=== PATIENT | female | born 1945 | race Caucasian/White ===

== ENCOUNTER → 2017-04-24 | Outpatient (CLI) | payer MEDICARE ==
[2017-04-24 13:47] VITALS: BP 141/72; PULSE 70; TEMP 97.6; BMI 24.8
[2017-04-24 14:57] LABS: HCT 39.2 % (34.0-46.0); HGB 12.4 gm/dL (11.4-16.0); MCH 32.6 pg (25.0-35.0); MCHC 31.6 g/dL (31.0-37.0); MCV 103.2 fL (80.0-100.0); Macrocytosis Slight; Platelet Count 299 k/uL (150-450); RDW 12.6 % (11.5-15.5); WBC 10.5 k/uL (3.8-10.6)
[2017-04-24 15:08] LABS: ALT 43 U/L (9-52); AST 36 U/L (14-36); Albumin 3.7 g/dL (3.5-5.0); Alkaline Phosphatase 117 U/L (38-126); Anion Gap 9 mmol/L; Blood Urea Nitrogen 17 mg/dL (7-17); Carbon Dioxide 24 mmol/L (22-30); Chloride 106 mmol/L (98-107); Cholesterol 139 mg/dL (<200); Glucose 83 mg/dL (74-99); HDL Cholesterol 87 mg/dL (40-60); LDL Cholesterol,Calculated 37 mg/dL (0-99); Magnesium 1.7 mg/dL (1.6-2.3); Partial Thromboplastin Time 25.8 sec (22.0-30.0); Phosphorus 3.7 mg/dL (2.5-4.5); Potassium 4.4 mmol/L (3.5-5.1); Prothrombin Time 10.2 sec (9.0-12.0); Sodium 139 mmol/L (137-145); Total Bilirubin 0.4 mg/dL (0.2-1.3); Total Protein 6.2 g/dL (6.3-8.2); Triglycerides 77 mg/dL (<150)
[2017-04-24 18:46] LABS: Vitamin D 25 Hydroxy 35.1 ng/mL (30.0-100.0)
[2017-04-24 19:14] LABS: Folate, Serum >24.0 ng/mL; Iron Saturation 8.67 (12.00-45.00); Vitamin B12 >4000.0 pg/mL (211-911)
[2017-04-24 20:04] LABS: Hemoglobin A1C 5.3 % (4.0-6.0)
[2017-04-24 20:20] LABS: Parathyroid Hormone Intact 56.2 pg/mL (14.0-72.0)
[2017-04-25 12:19] LABS: Zinc, Serum 66 ug/dL (60-130)
[2017-04-26 04:00] LABS: Vitamin B1 65 ug/L (38-122)
[2017-04-26 06:16] LABS: Vitamin A 40 ug/dL (38-106)
[2017-04-26 19:00] LABS: Selenium 101 mcg/L (63-160)
--- NOTE | 2017-06-22 20:52 | P.PN ---
Subjective Progress Note Date: 04/24/17 DATE OF SERVICE: 04/24/2017 CHIEF COMPLAINT: Follow-up Jyoti-en-Y gastric bypass. HISTORY OF PRESENT ILLNESS: Debra Blanco is a 72-year-old female who is status post Jyoti-en-Y gastric bypass in January 2014. She has history of prior Rosio fundoplasty with failure and she had weighed 210 pounds. Today she comes in weighing 145 pounds. She has lost 66 pounds. [place] body weight is 144 pounds. Percent excess weight loss is 99%. Body mass index is reduced from 36.1 down to 24.8. Her reflux and heartburn is completely resolved. No reports of dysphagia. No reports of abdominal pain. Now she presents for further evaluation and management. PAST MEDICAL HISTORY: 1. Morbid obesity. 2. Prior body mass index of 36.2. 3. Dyslipidemia. 4. Gastroesophageal reflux disease. 5. Osteoarthritis. 6. Essential tremors. 7. Depression. 8. Gastroesophageal disease, resolved. PAST SURGICAL HISTORY: 1. Upper endoscopy. 2. Colonoscopy. 3. Cholecystectomy. 4. Fundoplasty. 5. Varicose vein stripping. 6. EGD. 7. Jyoti-en-Y gastric bypass. MEDICATIONS: 1. Vitamin B. 2. Topiramate. 3. Primidone. 4. Paxil. 5. Multivitamin. 6. Vitamin D. 7. Calcium citrate. ALLERGIES: DENIES. SOCIAL HISTORY: She is . No active tobacco or alcohol use. FAMILY HISTORY: Pertinent for morbid obesity. REVIEW OF SYSTEMS: CONSTITUTIONAL: [place] body of 144 pounds. Initial weight 210 pounds. Current weight 144 pounds. Body mass index reduced from 36.1 down to 24.8. She has lost 2 pounds in 1 year. She has 99% excess loss. GASTROINTESTINAL: Complete resolution of gastroesophageal reflux disease. MUSCULOSKELETAL: Improvement of the back including joints. HEENT: No troubles with hearing or dysphagia. ENDOCRINE: No reports of diabetes or thyroid disorder. CARDIOVASCULAR: No reports of recent chest pain or dyspnea on exertion. RESPIRATORY: Denies any asthma or wheezing. NEURO: No reports of stroke or seizure disorders. PSYCH: History of depression without suicidal ideation. HEMATOLOGIC: No easy bruising or bleeding. PHYSICAL EXAMINATION: VITAL SIGNS: 5 foot 4, 144 pounds. Body mass index 24.8. Vital Signs Temp 97.6 F 04/24/17 13:12 Pulse 70 04/24/17 13:12 Resp BP 141/72 04/24/17 13:12 Pulse Ox ABDOMEN: Soft, nontender, nondistended. No palpable mass. GENERAL: Well-developed, pleasant female in no acute distress. HEENT: No sclerae icterus. Extraocular movements grossly intact. Moist buccal mucosa. NECK: Supple without lymphadenopathy. CHEST: Nonlabored respirations. Equal bilateral excursions. CARDIOVASCULAR: Regular rate. 2+ radial pulses. MUSCULOSKELETAL: No clubbing, cyanosis or edema. NEURO: No focal or lateralizing signs. Cranial nerves II-12 grossly intact PSYCH: Appropriate affect. Alert and oriented to person, place and time. SKIN: Well perfused. Skin turgor. ASSESSMENT: 1. Morbid obesity due to exogenous caloric intake, now resolved. 2. Body mass index reduced from 36.2 to 24.8.. 3. Gastroesophageal reflux disease, completely resolved. 4. Hypertension, resolved. 5. Status post Jyoti-en-Y gastric bypass. 6. Iron deficiency anemia. PLAN: 1. Recommend bariatric metabolic panel as she is one year out. 2. Follow in [facility] in 1 year. 3. Recommend iron supplement. LABS: Laboratory Last Values WBC 10.5 k/uL (3.8-10.6) 04/24/17 14:31 RBC 3.80 m/uL (3.80-5.40) 04/24/17 14:31 Hgb 12.4 gm/dL (11.4-16.0) 04/24/17 14:31 Hct 39.2 % (34.0-46.0) 04/24/17 14:31 MCV 103.2 fL (80.0-100.0) H 04/24/17 14:31 MCH 32.6 pg (25.0-35.0) 04/24/17 14:31 MCHC 31.6 g/dL (31.0-37.0) 04/24/17 14:31 RDW 12.6 % (11.5-15.5) 04/24/17 14:31 Plt Count 299 k/uL (150-450) 04/24/17 14:31 Macrocytosis Slight 04/24/17 14:31 PT 10.2 sec (9.0-12.0) 04/24/17 14:31 INR 1.0 (<1.2) 04/24/17 14:31 APTT 25.8 sec (22.0-30.0) 04/24/17 14:31 Sodium 139 mmol/L (137-145) 04/24/17 14:31 Potassium 4.4 mmol/L (3.5-5.1) 04/24/17 14:31 Chloride 106 mmol/L (98-107) 04/24/17 14:31 Carbon Dioxide 24 mmol/L (22-30) 04/24/17 14:31 Anion Gap 9 mmol/L 04/24/17 14:31 BUN 17 mg/dL (7-17) 04/24/17 14:31 Creatinine 0.90 mg/dL (0.52-1.04) 04/24/17 14:31 Est GFR (MDRD) Af Amer >60 (>60 ml/min/1.73 sqM) 04/24/17 14:31 Est GFR (MDRD) Non-Af >60 (>60 ml/min/1.73 sqM) 04/24/17 14:31 Glucose 83 mg/dL (74-99) 04/24/17 14:[address] Glu mg/dL 105 04/24/17 14:31 Hemoglobin A1c 5.3 % (4.0-6.0) 04/24/17 14:31 Calcium 9.0 mg/dL (8.4-10.2) 04/24/17 14:31 Phosphorus 3.7 mg/dL (2.5-4.5) 04/24/17 14:31 Magnesium 1.7 mg/dL (1.6-2.3) 04/24/17 14:31 Iron 26 ug/dL (50-170) L 04/24/17 14:31 TIBC 300 ug/dL (228-460) 04/24/17 14:31 Iron Saturation 8.67 (12.00-45.00) L 04/24/17 14:31 Ferritin 59.5 ng/mL (10.0-291.0) 04/24/17 14:31 Total Bilirubin 0.4 mg/dL (0.2-1.3) 04/24/17 14:31 AST 36 U/L (14-36) 04/24/17 14:31 ALT 43 U/L (9-52) 04/24/17 14:31 Alkaline Phosphatase 117 U/L (38-126) 04/24/17 14:31 Total Protein 6.2 g/dL (6.3-8.2) L 04/24/17 14:31 Albumin 3.7 g/dL (3.5-5.0) 04/24/17 14:31 Prealbumin 14.0 mg/dL (18.0-42.0) L 04/24/17 14:31 Triglycerides 77 mg/dL (<150) 04/24/17 14:31 Cholesterol 139 mg/dL (<200) 04/24/17 14:31 LDL Cholesterol, Calc 37 mg/dL (0-99) 04/24/17 14:31 HDL Cholesterol 87 mg/dL (40-60) H 04/24/17 14:31 Vitamin A 40 ug/dL (38-106) 04/24/17 14:31 Vitamin B1 65 ug/L (38-122) 04/24/17 14:31 Vitamin B12 >4000.0 pg/mL (211-911) H 04/24/17 14:31 Vitamin D 25-Hydroxy 35.1 ng/mL (30.0-100.0) 04/24/17 14:31 Folate >24.0 ng/mL 04/24/17 14:31 TSH 1.960 mIU/L (0.465-4.680) 04/24/17 14:31 PTH Intact 56.2 pg/mL (14.0-72.0) 04/24/17 14:31 Copper 1355 ug/L (810-1990) 04/24/17 14:31 Selenium 101 mcg/L (63-160) 04/24/17 14:31 Zinc 66 ug/dL (60-130) 04/24/17 14:31 Objective - Vital Signs Vital signs: Intake & Output 04/23/17 04/24/17 04/24/17 18:59 06:59 18:59 Weight 65.635 kg - Labs CBC & Chem 7: 04/24/17 14:31 04/24/17 14:31
== END | disposition home or self-care (01) ==
LOC: BARWHC3 12:38
PROVIDERS: ATTEND Surgery Plastic and Reconstructive Surgery
DX: Z48.815 Encounter for surgical aftercare following surgery on the digestive system (principal); D50.9 Iron deficiency anemia, unspecified; E78.5 Hyperlipidemia, unspecified; M19.90 Unspecified osteoarthritis, unspecified site; G25.0 Essential tremor; F32.9 Major depressive disorder, single episode, unspecified; E71.19 Other disorders of branched-chain amino-acid metabolism; E89.1 Postprocedural hypoinsulinemia; D50.8 Other iron deficiency anemias; E44.0 Moderate protein-calorie malnutrition; E55.9 Vitamin D deficiency, unspecified; K74.1 Hepatic sclerosis; N19 Unspecified kidney failure; K50.90 Crohn's disease, unspecified, without complications; Z98.84 Bariatric surgery status; Z90.49 Acquired absence of other specified parts of digestive tract; Z79.899 Other long term (current) drug therapy; Z98.890 Other specified postprocedural states
CPT/HCPCS: 84255; 84134; 84425; 80061; 80053; 82607; 82728; 82525; 82746; 83540; 83550; 83735; 84100; 84443; 84590; 84630; 85027; 85610; 85730; 82306; 83970; 83036; 36415; G0463; 99211

== ENCOUNTER → 2018-04-23 | Outpatient (CLI) | payer MEDICARE ==
[2018-04-23 14:11] VITALS: BP 130/74; PULSE 66; RESP 16; TEMP 98.1; BMI 26.8
--- NOTE | 2018-04-23 14:49 | P.PN ---
Subjective Progress Note Date: 04/23/18 DATE OF SERVICE: 04/23/2018 CHIEF COMPLAINT: Follow-up Jyoti-en-Y gastric bypass. HISTORY OF PRESENT ILLNESS: Debra Blanco is a 73-year-old female who is status post Jyoti-en-Y gastric bypass in January 2014. She is 4 years out. She is on the road. She has gained 12 pounds in 1 year. She was 145 pounds. Today she comes in 156 pounds. She has no gastroesophageal reflux disease. She was 210 pounds. She has lost 54 pounds. [place] body weight is 144 pounds. Percent excess weight loss is 82%. Body mass index is reduced from 36.1 down to 26.9. No reports of abdominal pain. PAST MEDICAL HISTORY: 1. Morbid obesity. 2. Prior body mass index of 36.2. 3. Dyslipidemia. 4. Gastroesophageal reflux disease. 5. Osteoarthritis. 6. Essential tremors. 7. Depression. 8. Gastroesophageal disease, resolved. PAST SURGICAL HISTORY: 1. Upper endoscopy. 2. Colonoscopy. 3. Cholecystectomy. 4. Fundoplasty. 5. Varicose vein stripping. 6. EGD. 7. Jyoti-en-Y gastric bypass. MEDICATIONS: 1. Vitamin B. 2. Topiramate. 3. Primidone. 4. Paxil. 5. Multivitamin. 6. Vitamin D. 7. Calcium citrate. ALLERGIES: DENIES. SOCIAL HISTORY: She is . No active tobacco or alcohol use. FAMILY HISTORY: Pertinent for morbid obesity. REVIEW OF SYSTEMS: CONSTITUTIONAL: [place] body of 144 pounds. Initial weight 210 pounds. Body mass index was 36.1. GASTROINTESTINAL: Complete resolution of gastroesophageal reflux disease. No dumping syndrome. MUSCULOSKELETAL: Improvement of the back including joints. HEENT: No troubles with hearing or dysphagia. ENDOCRINE: No reports of diabetes or thyroid disorder. CARDIOVASCULAR: No reports of recent chest pain or dyspnea on exertion. RESPIRATORY: Denies any asthma or wheezing. NEURO: No reports of stroke or seizure disorders. PSYCH: History of depression without suicidal ideation. HEMATOLOGIC: No easy bruising or bleeding. PHYSICAL EXAMINATION: VITAL SIGNS: 5 foot 4, 156 pounds. Body mass index 26.9. Vital Signs Temp 98.1 F 04/23/18 14:07 Pulse 66 04/23/18 14:07 Resp 16 04/23/18 14:07 BP 130/74 04/23/18 14:07 Pulse Ox ABDOMEN: Soft, nontender, nondistended. No palpable mass. GENERAL: Well-developed, pleasant female in no acute distress. HEENT: No sclerae icterus. Extraocular movements grossly intact. Moist buccal mucosa. NECK: Supple without lymphadenopathy. CHEST: Nonlabored respirations. Equal bilateral excursions. CARDIOVASCULAR: Regular rate. 2+ radial pulses. MUSCULOSKELETAL: No clubbing, cyanosis or edema. NEURO: No focal or lateralizing signs. Cranial nerves II-12 grossly intact PSYCH: Appropriate affect. Alert and oriented to person, place and time. SKIN: Well perfused. Skin turgor. ASSESSMENT: 1. Morbid obesity due to exogenous caloric intake, now resolved. 2. Body mass index reduced from 36.2 to 26.9 3. Gastroesophageal reflux disease, completely resolved. 4. Hypertension, resolved. 5. Status post Jyoti-en-Y gastric bypass. 6. Iron deficiency anemia. PLAN: 1. She is doing well. 2. She has no gastroesophageal reflux disease 3. Recommend bariatric labs. Laboratory Last Values WBC 6.6 k/uL (3.8-10.6) 04/23/18 15:12 RBC 3.98 m/uL (3.80-5.40) 04/23/18 15:12 Hgb 12.8 gm/dL (11.4-16.0) 04/23/18 15:12 Hct 40.1 % (34.0-46.0) 04/23/18 15:12 MCV 100.8 fL (80.0-100.0) H 04/23/18 15:12 MCH 32.2 pg (25.0-35.0) 04/23/18 15:12 MCHC 32.0 g/dL (31.0-37.0) 04/23/18 15:12 RDW 12.2 % (11.5-15.5) 04/23/18 15:12 Plt Count 297 k/uL (150-450) 04/23/18 15:12 PT 10.1 sec (9.0-12.0) 04/23/18 15:12 INR 1.0 (<1.2) 04/23/18 15:12 APTT 23.8 sec (22.0-30.0) 04/23/18 15:12 Sodium 141 mmol/L (135-145) 04/23/18 15:12 Potassium 4.1 mmol/L (3.5-5.5) 04/23/18 15:12 Chloride 109 mmol/L (96-109) 04/23/18 15:12 Carbon Dioxide 25.8 mmol/L (21.6-31.8) 04/23/18 15:12 Anion Gap 6.20 mmol/L (4.00-12.00) 04/23/18 15:12 BUN 20.0 mg/dL (9.0-27.0) 04/23/18 15:12 Creatinine 1.1 mg/dL (0.6-1.5) 04/23/18 15:12 Est GFR (CKD-EPI)AfAm 57.3 (60.0-200.0) L 04/23/18 15:12 Est GFR (CKD-EPI)NonAf 49.4 (60.0-200.0) L 04/23/18 15:12 BUN/Creatinine Ratio 18.18 Ratio (12.00-20.00) 04/23/18 15:12 Glucose 73 mg/dL (70-110) 04/23/18 15:[address] Glu mg/dL 108 04/23/18 15:12 Hemoglobin A1c 5.4 % (4.0-6.0) 04/23/18 15:12 Calcium 8.8 mg/dL (8.7-10.3) 04/23/18 15:12 Phosphorus 3.8 mg/dL (2.4-5.1) 04/23/18 15:12 Magnesium 1.8 mg/dL (1.5-2.4) 04/23/18 15:12 Iron 98 ug/dL (50-170) 04/23/18 15:12 TIBC 270 ug/dL (228-460) 04/23/18 15:12 Iron Saturation 36.30 (12.00-45.00) 04/23/18 15:12 Ferritin 55.2 ng/mL (10.0-291.0) 04/23/18 15:12 Total Bilirubin 0.2 mg/dL (0.3-1.2) L 04/23/18 15:12 AST 36 U/L (13-35) H 04/23/18 15:12 ALT 35 U/L (8-44) 04/23/18 15:12 Alkaline Phosphatase 107 U/L (41-126) 04/23/18 15:12 Total Protein 5.9 g/dL (6.2-8.2) L 04/23/18 15:12 Albumin 4.10 g/dL (3.80-4.90) 04/23/18 15:12 Globulin 1.8 g/dL (2.1-3.7) L 04/23/18 15:12 Albumin/Globulin Ratio 2.28 g/dL (1.20-2.10) H 04/23/18 15:12 Prealbumin 26.0 mg/dL (18.0-42.0) 04/23/18 15:12 Triglycerides 141.0 mg/dL (0.0-149.0) 04/23/18 15:12 Cholesterol 183 mg/dL (0-200) 04/23/18 15:12 LDL Cholesterol, Calc 59.8 mg/dL (0.0-131.0) 04/23/18 15:12 VLDL Cholesterol, Calc 28.20 mg/dL (5.00-40.00) 04/23/18 15:12 HDL Cholesterol 95.0 mg/dL (40.0-60.0) H 04/23/18 15:12 Cholesterol/HDL Ratio 1.93 04/23/18 15:12 Vitamin A 69 ug/dL (38-106) 04/23/18 15:12 Vitamin B1 64 ug/L (38-122) 04/23/18 15: Vitamin B12 1424.0 pg/mL (200.0-944.0) H 04/23/18 15:12 Vitamin D 25-Hydroxy 30.0 ng/mL (30.0-100.0) 04/23/18 15:12 Folate >24.0 ng/mL 04/23/18 15:12 TSH 2.930 uIU/mL (0.350-5.500) 04/23/18 15:12 PTH Intact 78.3 pg/mL (14.0-72.0) H 04/23/18 15:12 Copper 1117 ug/L (810-1990) 04/23/18 15:12 Selenium 95 mcg/L (63-160) 11/14/18 15:12 Zinc 60 ug/dL (60-130) 04/23/18 15:12 Objective - Vital Signs Vital signs: Vital Signs Temp 98.1 F 04/23/18 14:07 Pulse 66 04/23/18 14:07 Resp 16 04/23/18 14:07 BP 130/74 04/23/18 14:07 Pulse Ox Intake & Output 04/22/18 04/23/18 04/23/18 18:59 06:59 18:59 Weight 70.959 kg - Labs CBC & Chem 7: 04/23/18 15:12 04/23/18 15:12
[2018-04-23 16:14] LABS: HCT 40.1 % (34.0-46.0); HGB 12.8 gm/dL (11.4-16.0); MCH 32.2 pg (25.0-35.0); MCV 100.8 fL (80.0-100.0); Platelet Count 297 k/uL (150-450); RBC 3.98 m/uL (3.80-5.40); RDW 12.2 % (11.5-15.5); WBC 6.6 k/uL (3.8-10.6)
[2018-04-23 16:21] LABS: Partial Thromboplastin Time 23.8 sec (22.0-30.0); Prothrombin Time 10.1 sec (9.0-12.0)
[2018-04-24 03:19] LABS: Parathyroid Hormone Intact 78.3 pg/mL (14.0-72.0)
[2018-04-24 03:32] LABS: Hemoglobin A1C 5.4 % (4.0-6.0)
[2018-04-24 04:17] LABS: Albumin 4.1 g/dL (3.80-4.90); Albumin/Globulin Ratio 2.28 (1.20-2.10); Anion Gap 6.2 mmol/L (4.00-12.00); Calcium 8.8 mg/dL (8.7-10.3); Carbon Dioxide 25.8 mmol/L (21.6-31.8); Globulin 1.8 g/dL (2.1-3.7); LDL Cholesterol,Calculated 59.8 mg/dL (0.0-131.0); Potassium 4.1 mmol/L (3.5-5.5); Total Bilirubin 0.2 mg/dL (0.3-1.2); Total Protein 5.9 g/dL (6.2-8.2); VLDL Calculation 28.2 mg/dL (5.00-40.00)
[2018-04-24 04:18] LABS: Magnesium 1.8 mg/dL (1.5-2.4); Phosphorus 3.8 mg/dL (2.4-5.1)
[2018-04-24 04:26] LABS: Folate, Serum >24.0 ng/mL
[2018-04-24 13:05] LABS: Zinc, Serum 60 ug/dL (60-130)
[2018-04-25 10:01] LABS: Vitamin A 69 ug/dL (38-106)
[2018-04-28 05:58] LABS: Vitamin B1 64 ug/L (38-122)
[2018-04-29 16:07] LABS: Selenium 95 mcg/L (63-160)
== END | disposition home or self-care (01) ==
LOC: BARWHC3 13:23
PROVIDERS: ATTEND Surgery Plastic and Reconstructive Surgery
DX: Z48.815 Encounter for surgical aftercare following surgery on the digestive system (principal); D50.9 Iron deficiency anemia, unspecified; E78.5 Hyperlipidemia, unspecified; E21.1 Secondary hyperparathyroidism, not elsewhere classified; E89.1 Postprocedural hypoinsulinemia; K90.9 Intestinal malabsorption, unspecified; E55.9 Vitamin D deficiency, unspecified; K76.9 Liver disease, unspecified; N19 Unspecified kidney failure; K50.90 Crohn's disease, unspecified, without complications; Z98.84 Bariatric surgery status; Z90.49 Acquired absence of other specified parts of digestive tract; Z98.890 Other specified postprocedural states; Z79.899 Other long term (current) drug therapy
CPT/HCPCS: 84255; 84134; 84425; 80061; 80053; 82607; 82728; 82525; 82746; 83540; 83550; 83735; 84100; 84443; 84590; 84630; 85027; 85610; 85730; 82306; 83970; 83036; 36415; G0463; 99211

== ENCOUNTER → 2019-05-06 | Outpatient (CLI) | payer MEDICARE ==
[2019-05-06 13:48] VITALS: BP 142/84; PULSE 64; RESP 16; TEMP 97.8; BMI 28.5
--- NOTE | 2019-05-06 14:28 | P.PN ---
Subjective Progress Note Date: 05/06/19 DATE OF SERVICE: 05/06/2019 CHIEF COMPLAINT: Follow-up Jyoti-en-Y gastric bypass. HISTORY OF PRESENT ILLNESS: Debra Blanco is a 73-year-old female who is status post Jyoti-en-Y gastric bypass in January 2014. She is 5 years out. She feels fine. She has complete resolution of her gastroesophageal reflux disease since her gastric bypass. She is unhappy with 20 pound weight gain in 2 years. She denies any abdominal pain. She had upset stomach yesterday. She reports seasonal allergies. [place] body weight is 144 pounds for 5 foot 4 inch frame. Highest weight of 210 pounds. She comes in 166 pounds from 156 pounds, 1 year ago. She has gained 10 pounds in 1 year. Percent excess weight loss is 67 %. Body mass index is reduced from 36.1 down to 28.5. She has lost 44 pounds, lifetime. PHYSICAL EXAMINATION: VITAL SIGNS: 5 foot 4, 156 pounds. Body mass index 26.9. Vital Signs Temp 97.8 F 05/06/19 13:38 Pulse 64 05/06/19 13:38 Resp 16 05/06/19 13:38 BP 142/84 05/06/19 13:38 Pulse Ox ABDOMEN: Soft, nontender, nondistended. GENERAL: Well-developed, pleasant female in no acute distress. HEENT: No sclerae icterus. Extraocular movements grossly intact. Moist buccal mucosa. NECK: Supple without lymphadenopathy. CHEST: Nonlabored respirations. Equal bilateral excursions. CARDIOVASCULAR: Regular rate. 2+ radial pulses. MUSCULOSKELETAL: No clubbing, cyanosis or edema. NEURO: No focal or lateralizing signs. Cranial nerves II-12 grossly intact PSYCH: Appropriate affect. Alert and oriented to person, place and time. SKIN: Well perfused. Skin turgor. LABS: Prior labs reviewed with elevated PTH. ASSESSMENT: 1. Morbid obesity due to exogenous caloric intake, now resolved. 2. Body mass index reduced from 36.2 to 26.9 3. Gastroesophageal reflux disease, completely resolved. 4. Hypertension, resolved. 5. Status post Jyoti-en-Y gastric bypass. 6. Iron deficiency anemia. 7. Secondary hyperparathyroidism PLAN: 1. Recommend bariatric labs. Laboratory Last Values WBC 5.5 k/uL (3.8-10.6) 05/06/19 14:39 RBC 3.70 m/uL (3.80-5.40) L 05/06/19 14:39 Hgb 12.0 gm/dL (11.4-16.0) 05/06/19 14:39 Hct 36.7 % (34.0-46.0) 05/06/19 14:39 MCV 99.1 fL (80.0-100.0) 05/06/19 14:39 MCH 32.4 pg (25.0-35.0) 05/06/19 14:39 MCHC 32.7 g/dL (31.0-37.0) 05/06/19 14:39 RDW 11.9 % (11.5-15.5) 05/06/19 14:39 Plt Count 308 k/uL (150-450) 05/06/19 14:39 PT 10.5 sec (9.0-12.0) 05/06/19 14:39 INR 1.0 (<1.2) 05/06/19 14:39 APTT 26.9 sec (22.0-30.0) 05/06/19 14:39 Sodium 140 mmol/L (135-145) 05/06/19 14:39 Potassium 3.9 mmol/L (3.5-5.5) 05/06/19 14:39 Chloride 108 mmol/L (96-109) 05/06/19 14:39 Carbon Dioxide 25.9 mmol/L (21.6-31.8) 05/06/19 14:39 Anion Gap 6.10 mmol/L (4.00-12.00) 05/06/19 14:39 BUN 18.0 mg/dL (9.0-27.0) 05/06/19 14:39 Creatinine 0.8 mg/dL (0.6-1.5) 05/06/19 14:39 Est GFR (CKD-EPI)AfAm 83.6 (60.0-200.0) 05/06/19 14:39 Est GFR (CKD-EPI)NonAf 72.1 (60.0-200.0) 05/06/19 14:39 BUN/Creatinine Ratio 22.50 Ratio (12.00-20.00) H 05/06/19 14:39 Glucose 91 mg/dL (70-110) 05/06/19 14:[address] Glu mg/dL 103 05/06/19 14:39 Hemoglobin A1c 5.2 % (4.0-6.0) 05/06/19 14:39 Calcium 8.8 mg/dL (8.7-10.3) 05/06/19 14:39 Phosphorus 2.8 mg/dL (2.4-5.1) 05/06/19 14:39 Magnesium 1.7 mg/dL (1.5-2.4) 05/06/19 14:39 Iron 65 ug/dL (50-170) 05/06/19 14:39 TIBC 268 ug/dL (228-460) 05/06/19 14:39 % Saturation 24.25 (12.00-45.00) 05/06/19 14:39 Ferritin 66.0 ng/mL (10.0-291.0) 05/06/19 14:39 Total Bilirubin 0.3 mg/dL (0.3-1.2) 05/06/19 14:39 AST 28 U/L (13-35) 05/06/19 14:39 ALT 19 U/L (8-44) 05/06/19 14:39 Alkaline Phosphatase 98 U/L (41-126) 05/06/19 14:39 Total Protein 5.8 g/dL (6.2-8.2) L 05/06/19 14:39 Albumin 4.00 g/dL (3.80-4.90) 05/06/19 14:39 Globulin 1.8 g/dL (1.6-3.3) 05/06/19 14:39 Albumin/Globulin Ratio 2.22 g/dL (1.60-3.17) 05/06/19 14:39 Prealbumin 19.0 mg/dL (18.0-42.0) 05/06/19 14:39 Triglycerides 92.0 mg/dL (0.0-149.0) 05/06/19 14:39 Cholesterol 158 mg/dL (0-200) 05/06/19 14:39 LDL Cholesterol, Calc 58.6 mg/dL (0.0-131.0) 05/06/19 14:39 VLDL Cholesterol, Calc 18.40 mg/dL (5.00-40.00) 05/06/19 14:39 HDL Cholesterol 81.0 mg/dL (40.0-60.0) H 05/06/19 14:39 Cholesterol/HDL Ratio 1.95 05/06/19 14:39 Vitamin A 46 ug/dL (38-106) 05/06/19 14:39 Vitamin B1 62 ug/L (38-122) 05/06/19 14:39 Vitamin B12 1037.0 pg/mL (200.0-944.0) H 05/06/19 14:39 Vitamin D 25-Hydroxy 30.7 ng/mL (30.0-100.0) 05/06/19 14:39 Folate >24.0 ng/mL 05/06/19 14:39 TSH 2.110 uIU/mL (0.350-5.500) 05/06/19 14:39 PTH Intact 72.8 pg/mL (14.0-72.0) H 05/06/19 14:39 Copper 1390 ug/L (810-1990) 05/06/19 14:39 Selenium 115 mcg/L (63-160) 05/06/19 14:39 Zinc 47 ug/dL (60-130) L 05/06/19 14:39 Total protein is low PTH is elevated but improved Zinc is low Objective - Vital Signs Vital signs: Vital Signs Temp 97.8 F 05/06/19 13:38 Pulse 64 05/06/19 13:38 Resp 16 05/06/19 13:38 BP 142/84 05/06/19 13:38 Pulse Ox Intake & Output 05/05/19 05/06/19 05/06/19 18:59 06:59 18:59 Weight 75.296 kg - Labs CBC & Chem 7: 05/06/19 14:39 05/06/19 14:39
[2019-05-06 15:18] LABS: HCT 36.7 % (34.0-46.0); MCH 32.4 pg (25.0-35.0); MCHC 32.7 g/dL (31.0-37.0); MCV 99.1 fL (80.0-100.0); Mean Platelet Volume 6.8; Platelet Count 308 k/uL (150-450); RDW 11.9 % (11.5-15.5); WBC 5.5 k/uL (3.8-10.6)
[2019-05-06 15:27] LABS: Partial Thromboplastin Time 26.9 sec (22.0-30.0); Prothrombin Time 10.5 sec (9.0-12.0)
[2019-05-06 20:18] LABS: Hemoglobin A1C 5.2 % (4.0-6.0)
[2019-05-07 01:03] LABS: % Iron Saturation 24.25 (12.00-45.00); ALT 19 U/L (8-44); AST 28 U/L (13-35); African American GFR (CKD) 83.6 (60.0-200.0); Albumin/Globulin Ratio 2.22 (1.60-3.17); Alkaline Phosphatase 98 U/L (41-126); Calcium 8.8 mg/dL (8.7-10.3); Carbon Dioxide 25.9 mmol/L (21.6-31.8); Chloride 108 mmol/L (96-109); Chol/HDL Ratio 1.95; Cholesterol 158 mg/dL (0-200); Globulin 1.8 g/dL (1.6-3.3); Glucose 91 mg/dL (70-110); Iron 65 ug/dL (50-170); LDL Cholesterol,Calculated 58.6 mg/dL (0.0-131.0); Magnesium 1.7 mg/dL (1.5-2.4); Non-African American GFR(CKD) 72.1 (60.0-200.0); Phosphorus 2.8 mg/dL (2.4-5.1); Potassium 3.9 mmol/L (3.5-5.5); Sodium 140 mmol/L (135-145); Total Bilirubin 0.3 mg/dL (0.3-1.2); Total Iron Binding Capacity 268 ug/dL (228-460); Total Protein 5.8 g/dL (6.2-8.2)
[2019-05-07 01:19] LABS: Folate, Serum >24.0 ng/mL
[2019-05-08 13:12] LABS: Zinc, Serum 47 ug/dL (60-130)
[2019-05-09 08:18] LABS: Vit B1(Thiamine) 62 ug/L (38-122)
[2019-05-09 09:26] LABS: Vitamin A 46 ug/dL (38-106)
[2019-05-11 17:42] LABS: Selenium 115 mcg/L (63-160)
== END | disposition home or self-care (01) ==
LOC: BARWHC3 13:31
PROVIDERS: ATTEND Surgery Plastic and Reconstructive Surgery
DX: E66.01 Morbid (severe) obesity due to excess calories (principal); Z68.28 Body mass index [BMI] 28.0-28.9, adult; E21.1 Secondary hyperparathyroidism, not elsewhere classified; E89.1 Postprocedural hypoinsulinemia; D50.9 Iron deficiency anemia, unspecified; K90.9 Intestinal malabsorption, unspecified; E55.9 Vitamin D deficiency, unspecified; K76.9 Liver disease, unspecified; N19 Unspecified kidney failure; K50.90 Crohn's disease, unspecified, without complications
CPT/HCPCS: 84255; 84134; 84425; 80061; 80053; 82607; 82728; 82525; 82746; 83540; 83550; 83735; 84100; 84443; 84590; 84630; 85027; 85610; 85730; 82306; 83970; 83036; G0463; 99211

== ENCOUNTER 2021-01-02 09:48 | Observation (INO) | payer MEDICARE ==
[2021-01-02 10:38] LABS: Basophils # (A) 0.1 k/uL (0-0.2); Basophils % (A) 1 %; Eosinophils # (A) 0.1 k/uL (0-0.7); Eosinophils % (A) 2 %; HCT 41.2 % (34.0-46.0); HGB 13.3 gm/dL (11.4-16.0); Lymphocytes % (A) 32 %; MCH 32.7 pg (25.0-35.0); MCHC 32.2 g/dL (31.0-37.0); MCV 101.5 fL (80.0-100.0); Macrocytosis Slight; Mean Platelet Volume 7.8; Monocytes # (A) 0.4 k/uL (0-1.0); Monocytes % (A) 6 %; Neutrophils # (A) 3.6 k/uL (1.3-7.7); Neutrophils % (A) 57 %; Platelet Count 303 k/uL (150-450); RBC 4.06 m/uL (3.80-5.40); RDW 13.1 % (11.5-15.5); WBC 6.4 k/uL (3.8-10.6)
[2021-01-02 10:53] LABS: Prothrombin Time 10.5 sec (9.0-12.0)
[2021-01-02 10:56] LABS: ALT 24 U/L (4-34); AST 37 U/L (14-36); African American GFR (CKD) >90 (>60 ml/min/1.73 sqM); Albumin 3.5 g/dL (3.5-5.0); Alkaline Phosphatase 154 U/L (38-126); Anion Gap 5 mmol/L; Blood Urea Nitrogen 15 mg/dL (7-17); Carbon Dioxide 25 mmol/L (22-30); Chloride 108 mmol/L (98-107); Creatine Kinase 30 U/L (30-135); Glucose 102 mg/dL (74-99); Non-African American GFR(CKD) 89 (>60 ml/min/1.73 sqM); Potassium 4.2 mmol/L (3.5-5.1); Sodium 138 mmol/L (137-145); Total Bilirubin 0.3 mg/dL (0.2-1.3); Total Protein 6.2 g/dL (6.3-8.2)
--- NOTE | 2021-01-02 11:25 | XR ---
EXAMINATION TYPE: XR chest 2V DATE OF EXAM: 01/02/2021 COMPARISON: NONE HISTORY: Shortness of breath TECHNIQUE: Frontal and lateral views of the chest are obtained. FINDINGS: Scattered senescent parenchymal changes noted. Hyperinflation compatible with COPD. No evidence for infiltrate. No evidence for atelectasis. Pleural-based mass versus eventration seen o n the lateral projection Heart size is stable. Mediastinal structures are stable and grossly unremarkable. No evidence for hilar prominence. Degenerative changes dorsal spine. IMPRESSION: 1. No evidence for acute pulmonary disease. Pleural-based mass versus eventration seen on the lateral projection
--- NOTE | 2021-01-02 11:36 | CT ---
EXAMINATION TYPE: CT brain wo con for TPA DATE OF EXAM: 01/02/2021 COMPARISON: None HISTORY: Dizziness, blurred vision. CT DLP: 1071.[address] of the brain was performed. The ventricles, basal cisterns and sulci overlying the cerebral convexities demonstrate mild enlargem ent. There is no evidence for intracranial hemorrhage or sulcal effacement. There is decreased attenuation about the periventricular white matter and deep white matter of both c erebral hemispheres, compatible with chronic small vessel ischemia. Differential diagnosis does inclu de demyelination. No mass effects are seen.No midline shift. Osseous calvarium is intact. If symptoms persist consider MRI. IMPRESSION: 1. Age related atrophic and chronic small vessel ischemic change without acute intracranial process s een at this time.
--- NOTE | 2021-01-02 12:05 | CT ---
EXAMINATION TYPE: CT angio head neck DATE OF EXAM: 01/02/2021 COMPARISON: None HISTORY: Dizziness, blurred vision. CT DLP: 389.8 mGycm CONTRAST: Performed with IV Contrast, patient injected with 65 mL of Isovue 370. Combination Contrast CTA cervical carotids and [place] CTA cervical carotids with 3-D recons truction Contrast CTA of the cervical carotids was performed 3-D reconstruction imaging obtained at a separate workstation. Right carotid system: Mild plaque is seen of the right common carotid artery. There is mild plaque a lso noted at the carotid bulb and proximal ICA. No significant diameter reduction. ECA is patent. Right vertebral artery appears unremarkable. Left carotid system: Mild plaque is seen of the left common carotid artery. There is mild plaque als o noted at the carotid bulb and proximal ICA. Moderate soft plaque proximal left ICA just distal to t he bulb with estimated diameter reduction of 60-70%. ECA is patent. Left vertebral artery appears un remarkable. IMPRESSION: 1. Estimated diameter reduction of proximal left ICA 60-70%. No hemodynamically significant stenosis right ICA at this time. CTA [place] with 3-D reconstruction Contrast CTA of the [place] was performed 3-D reconstruction imaging obtained at a separate workstation. Vertebrobasilar system as well as intracranial portions of the internal carotid arteries and their [place] tributaries are patent. I do not see evidence for sizable aneurysm or vascular malformation. Pl ease note MRI provides greater sensitivity and specificity. Visualized brain appears grossly unremar kable. IMPRESSION: 1. No significant abnormality.
[2021-01-02] MEDS ORDERED: MECLIZINE 12.5 MG TAB PO STA (13:34)
--- NOTE | 2021-01-02 13:56 | ED ---
Weakness HPI - General Chief complaint: Weakness Stated complaint: trouble walking, dizziness Time Seen by Provider: 01/02/21 10:00 Source: patient, family, RN notes reviewed Mode of arrival: wheelchair Limitations: no limitations - History of Present Illness Initial comments: This is a 75-year-old female with no prior history of stroke who states she had the onset around 10:30 last palpitations no chest pain other complaints or modifying factors evening a wave across her eyes and then dizziness she went to bed. She denies any headache dizziness and dizziness feels off balance present walk no focal weakness however she states no fevers chills nausea vomiting sweats currently no blurry vision no trouble with speech. MD Complaint: generalized weakness, difficulty walking - Related Data Home Medications Medication Instructions Recorded Confirmed PARoxetine HCL [Paxil Cr] 37.5 mg PO DAILY 12/02/13 01/02/21 Primidone [Mysoline] 50 mg PO BID 12/02/13 01/02/21 Topiramate 50 mg PO BID 12/02/13 01/02/21 Multivitamins, Thera [Multivitamin] 1 tab PO DAILY 07/14/14 01/02/21 Albuterol Sulfate [Ventolin HFA] 1 - 2 puff INHALATION RT-Q4H PRN 01/02/21 01/02/21 Calcium Carbonate [Calcium] 600 mg PO DAILY 01/02/21 01/02/21 Cholecalciferol [Vitamin D3 (25 25 mcg PO DAILY 01/02/21 01/02/21 Mcg = 1000 Iu)] Cyanocobalamin (Vitamin B-12) 1,000 mcg PO DAILY 01/02/21 01/02/21 [Vitamin B-12] Diclofenac Sodium Gel [Voltaren 2 gm TOPICAL DAILY PRN 01/02/21 01/02/21 Gel] Ferrous Sulfate [Feosol] 325 mg PO DAILY 01/02/21 01/02/21 Fluticasone Nasal [place] [Flonase 1 spr EA NOSTRIL DAILY 01/02/21 01/02/21 Nasal [place]] Zinc 50 mg PO DAILY 01/02/21 01/02/21 Allergies Allergy/AdvReac Type Severity Reaction Status Date / Time No Known Allergies Allergy Verified 01/02/21 10:32 Review of Systems ROS Statement: Those systems with pertinent positive or pertinent negative responses have been documented in the HPI. ROS Other: All systems not noted in ROS Statement are negative. Past Medical History Past Medical History: GERD/Reflux, Hyperlipidemia, Neurologic Disorder, Osteoarthritis (OA), Sleep Apnea/CPAP/BIPAP Additional Past Medical History / Comment(s): GOUT, ESSENTIAL TREMORS OF UPPER EXTREMITIES, "TROUBLE SWALLOWING", cataracts History of Any Multi-Drug Resistant Organisms: None Reported Past Surgical History: Bariatric Surgery, Cholecystectomy Additional Past Surgical History / Comment(s): Varicose Veins, TIFF (Transoral Incisionless Fundoplication), gastric bypass 04/19/14, bilateral cataracts Past Anesthesia/Blood Transfusion Reactions: No Reported Reaction Past Psychological History: Depression Smoking Status: Never smoker Past Alcohol Use History: Rare Past Drug Use History: None Reported General Exam - General Exam Comments Initial Comments: This is a well-developed well-nourished awake alert oriented 3 female Limitations: no limitations General appearance: alert, anxious Head exam: Present: atraumatic, normocephalic, normal inspection Eye exam: Present: normal appearance, PERRL, EOMI. Absent: scleral icterus, conjunctival injection, periorbital swelling ENT exam: Present: normal exam, mucous membranes moist Neck exam: Present: normal inspection. Absent: tenderness, meningismus, lymphadenopathy Respiratory exam: Present: normal lung sounds bilaterally. Absent: respiratory distress, wheezes, rales, rhonchi, stridor Cardiovascular Exam: Present: normal rhythm, bradycardia, normal heart sounds. Absent: systolic murmur, diastolic murmur, rubs, gallop, clicks GI/Abdominal exam: Present: soft, normal bowel sounds. Absent: distended, tenderness, guarding, rebound, rigid Extremities exam: Present: normal inspection, full ROM, normal capillary refill. Absent: tenderness, pedal edema, joint swelling, calf tenderness Back exam: Present: normal inspection Neurological exam: Present: alert, oriented X3, CN II-XII intact Psychiatric exam: Present: normal affect, normal mood Skin exam: Present: warm, dry, intact, normal color. Absent: rash Course Vital Signs 01/02/21 01/02/21 01/02/21 09:51 10:00 12:03 Temperature 97.9 F 98 F Pulse Rate 56 L 68 Respiratory 16 18 Rate Blood Pressure 155/80 140/72 O2 Sat by Pulse 99 98 Oximetry - Reevaluation(s) Reevaluation #1: 01/02/21 14:14 Reevaluation patient did feel somewhat better but she has not been moving much. EKG Findings - EKG Results: EKG: interpreted by JASON, sinus rhythm (Sinus bradycardia rate of 5801 64 QRS 78 QT since QTC 446/437 and T-wave changes) Medical Decision Making - Medical Decision Making Patient initially thought she was feeling better but she still profoundly dizzy and has difficulty with ambulation others no focal deficits consideration for vertigo however the patient will be admitted I did discuss case with Dr. wilson urology will be consulted. - Lab Data Result diagrams: 01/02/21 10:20 01/02/21 10:20 Lab Results 01/02/21 01/02/21 01/02/21 Range/Units 10:20 10:20 10:20 WBC 6.4 (3.8-10.6) k/uL RBC 4.06 (3.80-5.40) m/uL Hgb 13.3 (11.4-16.0) gm/dL Hct 41.2 (34.0-46.0) % MCV 101.5 H (80.0-100.0) fL MCH 32.7 (25.0-35.0) pg MCHC 32.2 (31.0-37.0) g/dL RDW 13.1 (11.5-15.5) % Plt Count 303 (150-450) k/uL MPV 7.8 Neutrophils % 57 % Lymphocytes % 32 % Monocytes % 6 % Eosinophils % 2 % Basophils % 1 % Neutrophils # 3.6 (1.3-7.7) k/uL Lymphocytes # 2.0 (1.0-4.8) k/uL Monocytes # 0.4 (0-1.0) k/uL Eosinophils # 0.1 (0-0.7) k/uL Basophils # 0.1 (0-0.2) k/uL Macrocytosis Slight PT 10.5 (9.0-12.0) sec INR 1.0 (<1.2) APTT 25.0 (22.0-30.0) sec Sodium 138 (137-145) mmol/L Potassium 4.2 (3.5-5.1) mmol/L Chloride 108 H (98-107) mmol/L Carbon Dioxide 25 (22-30) mmol/L Anion Gap 5 mmol/L BUN 15 (7-17) mg/dL Creatinine 0.60 (0.52-1.04) mg/dL Est GFR (CKD-EPI)AfAm >90 (>60 ml/min/1.73 sqM) Est GFR (CKD-EPI)NonAf 89 (>60 ml/min/1.73 sqM) Glucose 102 H (74-99) mg/dL Calcium 9.0 (8.4-10.2) mg/dL Total Bilirubin 0.3 (0.2-1.3) mg/dL AST 37 H (14-36) U/L ALT 24 (4-34) U/L Alkaline Phosphatase 154 H (38-126) U/L Creatine Kinase 30 (30-135) U/L Troponin I (0.000-0.034) ng/mL Total Protein 6.2 L (6.3-8.2) g/dL Albumin 3.5 (3.5-5.0) g/dL 01/02/21 Range/Units 10:20 WBC (3.8-10.6) k/uL RBC (3.80-5.40) m/uL Hgb (11.4-16.0) gm/dL Hct (34.0-46.0) % MCV (80.0-100.0) fL MCH (25.0-35.0) pg MCHC (31.0-37.0) g/dL RDW (11.5-15.5) % Plt Count (150-450) k/uL MPV Neutrophils % % Lymphocytes % % Monocytes % % Eosinophils % % Basophils % % Neutrophils # (1.3-7.7) k/uL Lymphocytes # (1.0-4.8) k/uL Monocytes # (0-1.0) k/uL Eosinophils # (0-0.7) k/uL Basophils # (0-0.2) k/uL Macrocytosis PT (9.0-12.0) sec INR (<1.2) APTT (22.0-30.0) sec Sodium (137-145) mmol/L Potassium (3.5-5.1) mmol/L Chloride (98-107) mmol/L Carbon Dioxide (22-30) mmol/L Anion Gap mmol/L BUN (7-17) mg/dL Creatinine (0.52-1.04) mg/dL Est GFR (CKD-EPI)AfAm (>60 ml/min/1.73 sqM) Est GFR (CKD-EPI)NonAf (>60 ml/min/1.73 sqM) Glucose (74-99) mg/dL Calcium (8.4-10.2) mg/dL Total Bilirubin (0.2-1.3) mg/dL AST (14-36) U/L ALT (4-34) U/L Alkaline Phosphatase (38-126) U/L Creatine Kinase (30-135) U/L Troponin I <0.012 (0.000-0.034) ng/mL Total Protein (6.3-8.2) g/dL Albumin (3.5-5.0) g/dL - Radiology Data Radiology results: report reviewed (Imaging reviewed no evidence of acute findings.), image reviewed Disposition Clinical Impression: Vertigo, Dizziness of unknown cause Disposition: ADMITTED IP TO THIS [facility] Condition: Fair Referrals: Teddy Moctezuma MD [Primary Care Provider] - 1-2 days
[2021-01-02] MEDS ORDERED: ALBUTEROL HFA INHALER INHALATION PRN (14:17)
[2021-01-02] MEDS: SODIUM CHLORIDE 0.9% 1,000 ML IV SCH (14:46)
--- NOTE | 2021-01-02 18:05 | P.CNNES ---
History of Present Illness Consult date: 01/02/21 Requesting physician: Wily Wray Reason for Consult: Dizziness, vertigo History of Present Illness: Patient is a 75-year-old female came to the hospital today at 9:51 AM for evaluation of acute onset of vertigo which he noted this morning. Patient states that last night at 10:30 PM before she went to bed, she was watching TV, when something went in front of her right eye across to the left. She also noticed that her right shoulder was pushed forward for a brief moment. The symptoms lasted for just a moment. She did not make anything significant of the symptoms and went to sleep. This morning she woke up at around 9:30 AM and was fine. As soon as she sat up in the bed, everything started spinning. When she walked, her legs felt wobbly, couldn't walk well and everything was going like a [id number]. As the symptoms persisted, she was concerned if she was having a stroke therefore decided to come to the ER. She denied any problem with the speech, any numbness or tingling of arms or legs, any focal weakness or double vision. No loss of vision. While she was coming to the hospital, her driving her in the car, everything was spinning. She denies any tinnitus, loss of hearing any pressure or pain in the ears or pops. She does have some sinus issues but has been going on for years, nothing worse recently. She feels there is a weight behind her eyes. There is no pain anywhere. Vital signs on arrival blood pressure 155/80, pulse rate 56, temperature 97.9. Computed tomography scan of head showed age-related atrophic and chronic small vessel ischemic change without acute intracranial process seen at this time. On my review, the paranasal sinuses and external auditory canal appears clear. CTA of neck showed estimated diameter reduction of proximal left ICA 60-70%. No h emodynamically significant stenosis right ICA at this time. CTA of [place] showed no significant abnormality. EKG shows sinus bradycardia. Chest x-ray showed no evidence for acute pulmonary disease. Pleural-based mass versus eventration seen on the lateral projection. Patient previously had undergone MRI of the brain without contrast on 01/03/2016 for "essential tremor and ataxia" which revealed no acute process. Scattered FLAIR lesions throughout the deep white matter tracts cerebral hemispheres, likely in the basis of small vessel disease. Other forms of demyelination are not entirely excluded. Blood test shows normal CBC with elevated MCV 101.5. PT/PTT normal, Chem-7 normal. AST mildly elevated 37, ALT 24. Troponin negative. Patient had a normal B12 1037 and folate > 24 on 05/06/2019. Hemoglobin A1c 5.2 on 05/06/2019. Patient does take Topamax 50 mg twice a day, primidone 50 mA twice a day, Paxil 37.5 mg daily, vitamin D, zinc, ferrous sulfate, B12 1000 g daily. Patient denies hypertension or diabetes. She has essential tremors for which she follows up with Dr. Mckeon. She has smoked 1 pack per day for 26 years, quit 30 years ago. She drinks 1 glass of wine every night, but does not drink heavily. She does not take any antiplatelet medication at home. Patient states that in the last few weeks she had 2 episodes which she felt like was low blood sugar. She is not sure what activity was she doing, perhaps walking from one room to another, nothing strenuous, when she felt of some dizziness, like there was low blood sugar. She check blood sugar one time and it was 78 which was not really low. She felt tired, sat down, took a protein bar and the symptoms passed within a few minutes. The current symptoms are somewhat similar but more intense and is not going away. She denies any nausea vomiting or diplopia. No blurred vision. Denies any recent trauma. Does not go to chiropractor. Patient states that at this time she still feels dizzy particularly looking to the left. Review of Systems As above in HPI. Denies any chest pain shortness of breath wheezing or cough. Denies any abdominal pain nausea vomiting diarrhea. No trauma. No rash. No fever or chills. Past Medical History Past Medical History: GERD/Reflux, Hyperlipidemia, Neurologic Disorder, Osteoart hritis (OA), Sleep Apnea/CPAP/BIPAP Additional Past Medical History / Comment(s): GOUT, ESSENTIAL TREMORS OF UPPER EXTREMITIES, "TROUBLE SWALLOWING", cataracts History of Any Multi-Drug Resistant Organisms: None Reported Past Surgical History: Bariatric Surgery, Cholecystectomy Additional Past Surgical History / Comment(s): Varicose Veins, TIFF (Transoral Incisionless Fundoplication), gastric bypass 04/19/14, bilateral cataracts Past Anesthesia/Blood Transfusion Reactions: No Reported Reaction Past Psychological History: Depression Smoking Status: Never smoker Past Alcohol Use History: Rare Past Drug Use History: None Reported Medications and Allergies Home Medications Medication Instructions Recorded Confirmed Type PARoxetine HCL [Paxil Cr] 37.5 mg PO DAILY 12/02/13 01/02/21 History Primidone [Mysoline] 50 mg PO BID 12/02/13 01/02/21 History Topiramate 50 mg PO BID 12/02/13 01/02/21 History Multivitamins, Thera [Multivitamin] 1 tab PO DAILY 07/14/14 01/02/21 History Albuterol Sulfate [Ventolin HFA] 1 - 2 puff INHALATION RT-Q4H PRN 01/02/21 01/02/21 History Calcium Carbonate [Calcium] 600 mg PO DAILY 01/02/21 01/02/21 History Cholecalciferol [Vitamin D3 (25 25 mcg PO DAILY 01/02/21 01/02/21 History Mcg = 1000 Iu)] Cyanocobalamin (Vitamin B-12) 1,000 mcg PO DAILY 01/02/21 01/02/21 History [Vitamin B-12] Diclofenac Sodium Gel [Voltaren 2 gm TOPICAL DAILY PRN 01/02/21 01/02/21 History Gel] Ferrous Sulfate [Feosol] 325 mg PO DAILY 01/02/21 01/02/21 History Fluticasone Nasal [place] [Flonase 1 spr EA NOSTRIL DAILY 01/02/21 01/02/21 History Nasal [place]] Zinc 50 mg PO DAILY 01/02/21 01/02/21 History Allergies Allergy/AdvReac Type Severity Reaction Status Date / Time No Known Allergies Allergy Verified 01/02/21 10:32 Physical Examination - Vital Signs Vital Signs: Vital Signs Temp Pulse Resp BP Pulse Ox 01/02/21 16:22 63 18 149/66 99 01/02/21 12:03 68 18 140/72 98 01/02/21 10:00 98 F 01/02/21 09:51 97.9 F 56 L 16 155/80 99 Intake and Output 01/02/21 01/02/21 01/02/21 06:59 14:59 22:59 Other: Weight 74.843 kg Patient is an elderly female, very pleasant, in no acute distress. She appears slightly pale. Patient is alert awake oriented to time place and person. Speech and language functions are normal. No aphasia or dysarthria. Attention, concentration and fund of knowledge is adequate. On cranial examination, pupils are equal, 3 mm, round and reacting to light, visual hernandez are full on confrontation, extraocular muscles are intact with no nystagmus. She feels more dizzy when looking to the left. Face is symmetric, tongue protrudes to the midline. Palatal elevation and sensation normal, hearing and shoulder shrug normal, facial sensation normal. On muscle strength testing, there is no pronator drift and the strength is normal in arms and legs distally and proximally. Deep tendon reflexes are very symmetric, 1+ in the upper limbs, 2 at the knees, 1+ ankles and plantars downgoing bilaterally. Sensory to touch and temperature is equal with no neglect on double simultaneous stimulation. Cerebellar function showed no ataxia for [id number] testing, although she is slightly tremulous, left more than right, but patient believes it is baseline from her essential tremor, nothing worse. No dysdiadochokinesia. Tone and bulk of muscles normal. No ataxia for [id number] testing. Gait not checked as patient is feeling dizzy. On general examination, there is mild left carotid bruit only at the base of the neck. There is no murmur, S1-S2 audible. Abdomen is soft nontender. Chest is clear. Peripheral pulses are present. No edema. Results - Laboratory Findings CBC and BMP: 01/02/21 10:20 01/02/21 10:20 Abnormal Lab Findings: Abnormal Labs 01/02/21 01/02/21 10:20 10:20 MCV 101.5 H Chloride 108 H Glucose 102 H AST 37 H Alkaline Phosphatase 154 H Total Protein 6.2 L Assessment and Plan Assessment: * New persistent vertigo noticed on waking up in the morning. No other focal symptoms except for very brief, transient visual disturbance (something went across the eye) that happened last night followed by a brief myoclonic jerk of the right shoulder. Rule out stroke TIA. Peripheral vestibular dysfunction also in the differential but she does not have any symptoms related to ears. * Left ICA stenosis 60-70% * Probable hypertension (not previously diagnosed, but blood pressures running moderately high) * Essential tremor * X tobacco use Plan: * Patient will undergo MRI of the brain to evaluate for any acute stroke. * We will check 2-D echo with bubble study rule out PFO. * Patient will be started on aspirin 325 mg daily. Patient was not taking any antiplatelet at home. * Fasting a.m. lipid panel, hemoglobin A1c. * Suggest telemetry monitoring. * Vascular surgical consultation for moderate left ICA stenosis. * Neurology will follow.
--- NOTE | 2021-01-02 19:59 | MR ---
EXAMINATION TYPE: MR brain wo con DATE OF EXAM: 01/02/2021 COMPARISON: 01/03/2016 HISTORY: TIA Multiplanar multiecho imaging of the brain without contrast. There is some cerebral cortical atrophy. There is no mass effect nor midline shift. There is no sign of intracranial hemorrhage. Diffusion images show no sign of an acute infarct. There are numerous sma ll foci of increased signal in the periventricular white matter. Total number is approximately 30 and most of these measure less than 5 mm. The brainstem is intact. Cerebellum is intact. There is some m ild mucosal thickening in the anterior ethmoid air cells. There is no evidence of orbital mass. Corpu s callosum is intact. Sella turcica is intact. IMPRESSION: Numerous white matter high signal foci consistent with microvascular ischemia or demyelinating diseas e. There is overall not a significant progression of disease compared to old exam.
[2021-01-02] MEDS: PRIMIDONE 50 MG TAB PO SCH (20:48)
[2021-01-02] MEDS: TOPIRAMATE 25 MG TAB PO SCH (20:48)
[2021-01-02] MEDS: ASPIRIN 325 MG TAB PO SCH (20:48)
--- NOTE | 2021-01-03 01:11 | P.HPIM ---
History of Present Illness H&P Date: 01/02/21 Chief Complaint: Vertigo Patient is a 75-year-old female with a known history of bilateral upper extremities tremor, hyperlipidemia, GERD, obstructive sleep apnea not on CPAP, depression presents to ER with complaints of vertigo started soon after she stepped out of her bed. Patient states that she went to bed around 10:30 PM the night before and woke her up around 9 AM when she suddenly started having dizzy and room started spinning. She can able to walk straight. Patient came to ER due to the symptoms not getting better. Otherwise denies any focal weakness. No complaints of slurred speech or numbness or tingling sensation in the extremities or facial muscle weakness or double vision. Denied any tinnitus. No complaints of headache. No fever no chills. Denied any recent illnesses. Chest x-ray on admission showed no evidence of acute pulmonary disease. Pleural-based mass versus eventration seen in the lateral projection. CT head and CT angiogram done in the ER showed age-related atrophic and chronic small vessel ischemic change without acute intracranial process. CT angiogram showed estimated diameter reduction of proximal left ICA 60 to 70%. No hemodynamically significant stenosis right ICA at this time. No significant abnormality noted. EKG showed sinus bradycardia with heart rate 58 Laboratory data showed sodium 138 potassium 4.2 BUN 15 and creatinine 0.6 AST 37 ALT 24 alk phos 154 total protein 6.2 On admission blood pressure 155/80 pulse of 56 respiration 18 and temperature 97.9 Review of Systems Constitutional: Patient denies any fever or chills . No generalized weakness or weight loss. Abdomen: Patient denied nausea vomiting and diarrhea and abdominal pain. Cardiovascular: Patient denies any chest pain or short of breath no palpitations. Respiratory: patient denied any cough or sputum production. No shortness of breath Neurologic: Patient denied any numbness or tingling headache. Musculoskeletal: Patient denies any complaints of joint swelling or deformity. Skin: Negative Psychiatric: Negative Endocrine: No heat or cold intolerance. No recent weight gain. Genitourinary: No dysuria or hematuria. All other 14 point ROS negative except the above Past Medical History Past Medical History: GERD/Reflux, Hyperlipidemia, Neurologic Disorder, Osteoarthritis (OA), Sleep Apnea/CPAP/BIPAP Additional Past Medical History / Comment(s): GOUT, ESSENTIAL TREMORS OF UPPER EXTREMITIES, "TROUBLE SWALLOWING", cataracts History of Any Multi-Drug Resistant Organisms: None Reported Past Surgical History: Bariatric Surgery, Cholecystectomy Additional Past Surgical History / Comment(s): Varicose Veins, TIFF (Transoral Incisionless Fundoplication), gastric bypass 04/19/14, bilateral cataracts Past Anesthesia/Blood Transfusion Reactions: No Reported Reaction Past Psychological History: Depression Smoking Status: Never smoker Past Alcohol Use History: Rare Past Drug Use History: None Reported Medications and Allergies Home Medications Medication Instructions Recorded Confirmed Type PARoxetine HCL [Paxil Cr] 37.5 mg PO DAILY 12/02/13 01/02/21 History Primidone [Mysoline] 50 mg PO BID 12/02/13 01/02/21 History Topiramate 50 mg PO BID 12/02/13 01/02/21 History Multivitamins, Thera [Multivitamin] 1 tab PO DAILY 07/14/14 01/02/21 History Albuterol Sulfate [Ventolin HFA] 1 - 2 puff INHALATION RT-Q4H PRN 01/02/21 01/02/21 History Calcium Carbonate [Calcium] 600 mg PO DAILY 01/02/21 01/02/21 History Cholecalciferol [Vitamin D3 (25 25 mcg PO DAILY 01/02/21 01/02/21 History Mcg = 1000 Iu)] Cyanocobalamin (Vitamin B-12) 1,000 mcg PO DAILY 01/02/21 01/02/21 History [Vitamin B-12] Diclofenac Sodium Gel [Voltaren 2 gm TOPICAL DAILY PRN 01/02/21 01/02/21 History Gel] Ferrous Sulfate [Feosol] 325 mg PO DAILY 01/02/21 01/02/21 History Fluticasone Nasal [place] [Flonase 1 spr EA NOSTRIL DAILY 01/02/21 01/02/21 History Nasal [place]] Zinc 50 mg PO DAILY 01/02/21 01/02/21 History Allergies Allergy/AdvReac Type Severity Reaction Status Date / Time No Known Allergies Allergy Verified 01/02/21 10:32 Physical Exam Vitals: Vital Signs Temp Pulse Resp BP Pulse Ox 01/02/21 16:22 63 18 149/66 99 01/02/21 12:03 68 18 140/72 98 01/02/21 10:00 98 F 01/02/21 09:51 97.9 F 56 L 16 155/80 99 Intake and Output 01/02/21 01/02/21 01/02/21 06:59 14:59 22:59 Other: Weight 74.843 kg PHYSICAL EXAMINATION: Patient is lying in the bed comfortably, no acute distress, awake alert and oriented.. HEENT: Normocephalic. Neck is supple. Pupils reactive. Nostrils clear. Oral cavity is moist. Neck reveals no JVD, carotid bruits, or thyromegaly. CHEST EXAMINATION: Trachea is central. Symmetrical expansion. Lung hernandez clear to auscultation and percussion. CARDIAC: Normal S1, S2 with no gallops. No murmurs ABDOMEN: Soft. Bowel sounds normal. No organomegaly. No abdominal bruits. Extremities: reveal no edema. No clubbing or cyanosis Neurologically awake, alert, oriented x3 with well-coordinated movements. No focal deficits noted Skin: No rash or skin lesions. Psychiatric: Coperative. Nonsuicidal Musculoskeletal: No joint swelling or deformity. Normal range of motion. Results CBC & Chem 7: 01/02/21 10:20 01/02/21 10:20 Labs: Abnormal Lab Results - Last 24 Hours (Table) 01/02/21 01/02/21 Range/Units 10:20 10:20 MCV 101.5 H (80.0-100.0) fL Chloride 108 H (98-107) mmol/L Glucose 102 H (74-99) mg/dL AST 37 H (14-36) U/L Alkaline Phosphatase 154 H (38-126) U/L Total Protein 6.2 L (6.3-8.2) g/dL Thrombosis Risk Factor Assmnt - DVT/VTE Prophylaxis DVT/VTE Prophylaxis: Pharmacologic Prophylaxis ordered Assessment and Plan Assessment: Persistent vertigo r/o acute CVA versus peripheral vestibular dysfunction Left ICA stenosis 60 to 70%. History of tremors of bilateral upper extremities. Hyperlipidemia GERD Osteoarthritis Obstructive sleep apnea not on CPAP Depression DVT prophylaxis with heparin subcu Plan: Patient was given meclizine in the ER which seemed to improve her symptoms. Patient was seen by neurology and recommend neurologic work-up including MRI and 2D echocardiogram with bubble study. Continue with aspirin and follow-up lipid panel level. Continue with telemetry monitoring. Vascular surgery was consulted due to left ICA stenosis. Continue to follow closely. Time with Patient: Greater than 30
[2021-01-03] MEDS: SODIUM CHLORIDE 0.9% 1,000 ML IV SCH ×3 (02:54→20:26)
[2021-01-03 04:10] LABS: Hemoglobin A1C 5.1 % (4.0-6.0)
[2021-01-03] MEDS: CYANOCOBALAMIN 500 MCG TAB PO SCH (07:59)
[2021-01-03] MEDS: CHOLECALCIFEROL 25 MCG (1000 IU) TABLET PO SCH (07:59)
[2021-01-03] MEDS: ASPIRIN 325 MG TAB PO SCH (08:00)
[2021-01-03] MEDS: CALCIUM CARBONATE 500 MG CHEWABLE PO SCH (08:00)
[2021-01-03] MEDS: FERROUS SULFATE 325 MG TAB PO SCH (08:00)
[2021-01-03] MEDS: FLUTICASONE 50MCG/SPRAY NASAL 16GM EA NOSTRIL SCH (08:01)
[2021-01-03] MEDS: PARoxetine 10 MG TAB PO SCH (08:01)
[2021-01-03] MEDS: MULTIVITAMINS, THERA 1 EACH TAB PO SCH (08:01)
[2021-01-03] MEDS: TOPIRAMATE 25 MG TAB PO SCH ×2 (08:02→20:25)
[2021-01-03] MEDS: ZINC SULFATE 220 MG CAP PO SCH (08:02)
[2021-01-03] MEDS: PRIMIDONE 50 MG TAB PO SCH ×2 (08:02→20:25)
[2021-01-03 10:32] LABS: Chol/HDL Ratio 2.01; LDL Cholesterol,Calculated 63.2 mg/dL (0.0-131.0); VLDL Calculation 19.8 mg/dL (5.00-40.00)
--- NOTE | 2021-01-03 12:16 | US ---
EXAMINATION TYPE: US carotid duplex BILAT DATE OF EXAM: 01/03/2021 COMPARISON: CTA head CLINICAL HISTORY: CVA, carotid stenosis , dizziness episode with overall weakness EXAM MEASUREMENTS: RIGHT: Peak Systolic Velocity (PSV) cm/sec ----- Right CCA: 52.9 ----- Right ICA: 88.6 ----- Right ECA: 103.9 ICA/CCA ratio: 1.7 RIGHT: End Diastole cm/sec ----- Right CCA: 12.7 ----- Right ICA: 30.3 ----- Right ECA: 3.4 LEFT: Peak Systolic Velocity (PSV) cm/sec ----- Left CCA: 82.0 ----- Left ICA: 133.5 distal ICA at turn in distal lumen ----- Left ECA: 87.5 ICA/CCA ratio: 1.6 LEFT: End Diastole cm/sec ----- Left CCA: 25.9 ----- Left ICA: 34.5 ----- Left ECA: 2.9 VERTEBRALS (direction of flow): Right Vertebral: Antegrade Left Vertebral: Antegrade Rhythm: Normal Moderate mixed plaque is noted at bilateral carotid bifurcation. Elevated PSV is noted in distal ICA and may due to turn in vessel as color flow is seen patent here from wall to wall without wall plaque . IMPRESSION: 1. Tortuosity of the left internal carotid artery may artifactually elevate the velocity. Consider ev aluation with CTA or MRA for additional evaluation. 2. Atheromatous plaquing is present. No additional areas suspicious for stenosis or evidence. Criteria for Assigning % of Stenosis / Diameter reduction (Estimation based on the indirect measurements of the internal carotid artery velocities (ICA PSV). 1. Normal (no stenosis)=ICA PSV < 125 cm/s: ratio < 2.0: ICA EDV<40 cm/s. 2. Less than 50% stenosis=ICA PSV < 125 cm/s: ratio < 2.0: ICA EDV<40 cm/s. 3. 50 to 69% stenosis=ICA PSV of 125 to 230 cm/s: ration 2.0 ? 4.0: ICA EDV 40-100 cm/s. 4. Greater than 70% stenosis to near occlusion= ICA PSV > 230 cm/s: ratio > 4.0: ICA EDV > 100 cm/s. 5. Near occlusion= ICA PSV velocities may be low or undetectable: variable ratio and ICA EDV. 6. Total occlusion=unable to detect flow.
--- NOTE | 2021-01-03 12:38 | P.GSCN ---
<Marti Stein - Last Filed: 01/03/21 12:25> History of Present Illness Consult date: 01/03/21 Reason for Consult: carotid stenosis Requesting physician: Sally Orourke History of present illness: This is a 75-year-old white female who presented to the emergency department today afternoon with complaints of severe dizziness and the room spinning. She states she woke up yesterday morning she felt very dizzy like the room was spinning it would not stop and lasted for a prolonged period. She states Saturday night she had a/of light across her eyes that was very brief, however denied any dizziness, any weakness and went to bed. When she woke up yesterday morning she had the dizziness, she denied any visual changes, any upper or lower extremity weakness. She denies any shortness of breath, chest pain, focal deficits. She has a past medical history including recent pneumonia and essential tremors and takes Topamax. As part of her workup in the emergency department she had a CT of the brain done that showed age-related atrophic and chronic small vessel ischemic changes without acute intracranial process seen. CT angiogram gram of the head and neck showed an estimated diameter reduction of proximal left ICA 60-70%. No hemodynamically significant stenosis of right ICA at this time. Brain showed no significant abnormality. She also underwent an MRI of the brain that showed numerous white matter high signal foci consistent with microvascular ischemia or demyelinating disease. There is overall not a significant progre ssion of disease compared to old exam. Today she had a continues to deny any focal deficits. Denies any dizziness or weakness. Denies any shortness of breath, chest pain, abdominal pain, nausea, or vomiting. States she has no prior history of any carotid stenosis. No history of TIA/CVA. Review of Systems 14 point review of systems was completed all pertinent positives and negatives as stated in the HPI. Past Medical History Past Medical History: GERD/Reflux, Hyperlipidemia, Neurologic Disorder, Osteoarthritis (OA), Sleep Apnea/CPAP/BIPAP Additional Past Medical History / Comment(s): GOUT, ESSENTIAL TREMORS OF UPPER EXTREMITIES, "TROUBLE SWALLOWING", cataracts History of Any Multi-Drug Resistant Organisms: None Reported Past Surgical History: Bariatric Surgery, Cholecystectomy Additional Past Surgical History / Comment(s): Varicose Veins, TIFF (Transoral Incisionless Fundoplication), gastric bypass 04/19/14, bilateral cataracts Past Anesthesia/Blood Transfusion Reactions: No Reported Reaction Past Psychological History: Depression Smoking Status: Never smoker Past Alcohol Use History: Rare Past Drug Use History: None Reported Medications and Allergies Home Medications Medication Instructions Recorded Confirmed Type PARoxetine HCL [Paxil Cr] 37.5 mg PO DAILY 12/02/13 01/02/21 History Primidone [Mysoline] 50 mg PO BID 12/02/13 01/02/21 History Topiramate 50 mg PO BID 12/02/13 01/02/21 History Multivitamins, Thera [Multivitamin] 1 tab PO DAILY 07/14/14 01/02/21 History Albuterol Sulfate [Ventolin HFA] 1 - 2 puff INHALATION RT-Q4H PRN 01/02/21 01/02/21 History Calcium Carbonate [Calcium] 600 mg PO DAILY 01/02/21 01/02/21 History Cholecalciferol [Vitamin D3 (25 25 mcg PO DAILY 01/02/21 01/02/21 History Mcg = 1000 Iu)] Cyanocobalamin (Vitamin B-12) 1,000 mcg PO DAILY 01/02/21 01/02/21 History [Vitamin B-12] Diclofenac Sodium Gel [Voltaren 2 gm TOPICAL DAILY PRN 01/02/21 01/02/21 History Gel] Ferrous Sulfate [Feosol] 325 mg PO DAILY 01/02/21 01/02/21 History Fluticasone Nasal [place] [Flonase 1 spr EA NOSTRIL DAILY 01/02/21 01/02/21 History Nasal [place]] Zinc 50 mg PO DAILY 01/02/21 01/02/21 History Allergies Allergy/AdvReac Type Severity Reaction Status Date / Time No Known Allergies Allergy Verified 01/02/21 10:32 Surgical - Exam Vital Signs Temp Pulse Resp BP Pulse Ox 97.9 F 56 L 16 155/80 99 01/02/21 09:51 01/02/21 09:51 01/02/21 09:51 01/02/21 09:51 01/02/21 09:51 General appearance: The patient is alert, oriented, appears in no acute distress. HET: Head is normocephalic and atraumatic. Pupils are equal and reactive. Neck: Supple without lymphadenopathy. Trachea midline. No audible carotid bruit bilaterally. Heart: S1 S2. Regular rate and rhythm. Lungs: Clear to auscultation bilaterally. Abdomen: Soft, nontender, nondistended. Extremities: Normal skin color and turgor. No cyanosis, rash, ulceration, clubbing, or edema. Radial and pedal pulses are 2/4 bilaterally. Neurological: No focal deficits. Strength and sensation are grossly intact. Alert and oriented 3. Results - Labs 01/02/21 10:20 01/02/21 10:20 Abnormal Lab Results - Last 24 Hours (Table) 01/02/21 01/02/21 Range/Units 10:20 10:20 MCV 101.5 H (80.0-100.0) fL Chloride 108 H (98-107) mmol/L Glucose 102 H (74-99) mg/dL AST 37 H (14-36) U/L Alkaline Phosphatase 154 H (38-126) U/L Total Protein 6.2 L (6.3-8.2) g/dL Diabetes panel 01/02/21 01/02/21 Range/Units 10:20 10:20 Sodium 138 (137-145) mmol/L Potassium 4.2 (3.5-5.1) mmol/L Chloride 108 H (98-107) mmol/L Carbon Dioxide 25 (22-30) mmol/L BUN 15 (7-17) mg/dL Creatinine 0.60 (0.52-1.04) mg/dL Glucose 102 H (74-99) mg/dL Hemoglobin A1c 5.1 (4.0-6.0) % Calcium 9.0 (8.4-10.2) mg/dL AST 37 H (14-36) U/L ALT 24 (4-34) U/L Alkaline Phosphatase 154 H (38-126) U/L Total Protein 6.2 L (6.3-8.2) g/dL Albumin 3.5 (3.5-5.0) g/dL Calcium panel 01/02/21 Range/Units 10:20 Calcium 9.0 (8.4-10.2) mg/dL Albumin 3.5 (3.5-5.0) g/dL Pituitary panel 01/02/21 Range/Units 10:20 Sodium 138 (137-145) mmol/L Potassium 4.2 (3.5-5.1) mmol/L Chloride 108 H (98-107) mmol/L Carbon Dioxide 25 (22-30) mmol/L BUN 15 (7-17) mg/dL Creatinine 0.60 (0.52-1.04) mg/dL Glucose 102 H (74-99) mg/dL Calcium 9.0 (8.4-10.2) mg/dL Adrenal panel 01/02/21 Range/Units 10:20 Sodium 138 (137-145) mmol/L Potassium 4.2 (3.5-5.1) mmol/L Chloride 108 H (98-107) mmol/L Carbon Dioxide 25 (22-30) mmol/L BUN 15 (7-17) mg/dL Creatinine 0.60 (0.52-1.04) mg/dL Glucose 102 H (74-99) mg/dL Calcium 9.0 (8.4-10.2) mg/dL Total Bilirubin 0.3 (0.2-1.3) mg/dL AST 37 H (14-36) U/L ALT 24 (4-34) U/L Alkaline Phosphatase 154 H (38-126) U/L Total Protein 6.2 L (6.3-8.2) g/dL Albumin 3.5 (3.5-5.0) g/dL - Imaging Comments: CT of the brain done that showed age-related atrophic and chronic small vessel ischemic changes without acute intracranial process seen. CT angiogram gram of the head and neck showed an estimated diameter reduction of proximal left ICA 60-70%. No hemodynamically significant stenosis of right ICA at this time. Brain showed no significant abnormality. MRI of the brain that showed numerous white matter high signal foci consistent with microvascular ischemia or demyelinating disease. There is overall not a significant progression of disease compared to old exam. Carotid ultrasound shows tortuosity of the left internal carotid artery may artifactually elevate the velocity. Consider evaluation with CTA or MRA for additional evaluation. Arthromatous plaquing is present. No additional areas suspicious for stenosis or evidence. Right ICA PSV 88.6, IC A/CCA ratio 1.7, left ICA PSV 133.5 distal ICA at term and distal lumen, ICA/CCA ratio 1.6 Assessment and Plan Assessment: 1. Left ICA stenosis, reported 60-70% on CT angiogram 2. Vertigo 3. Essential tremor Plan: 1. CT angiogram head and neck reviewed 2. Carotid ultrasound ordered 3. Await recommendations from neurology 4. Continue current medical management 5. Further recommendations to follow Thank you for this consultation, we will continue to follow. The impression and plan of care has been dictated as directed. Dr. Laura I performed a history and examination of this patient, discussed the same with the dictator. I agree with the dictator's note ,documented as a scribe. Any additional findings or plans will be noted. <Per Laura - Last Filed: 01/04/21 07:20> Surgical - Exam Vital Signs Temp Pulse Resp BP Pulse Ox 97.9 F 56 L 16 155/80 99 01/02/21 09:51 01/02/21 09:51 01/02/21 09:51 01/02/21 09:51 01/02/21 09:51 Results - Labs 01/02/21 10:20 01/02/21 10:20 Abnormal Lab Results - Last 24 Hours (Table) 01/03/21 Range/Units 06:20 HDL Cholesterol 82.0 H (40.0-60.0) mg/dL Diabetes panel 01/03/21 Range/Units 06:20 Triglycerides 99.0 (0.0-149.0) mg/dL HDL Cholesterol 82.0 H (40.0-60.0) mg/dL Assessment and Plan Plan: Will have patient follow up in the office for possible intervention. She has concern due to family history of strokes and if this is due to carotid disease she would like intervention sooner than later. Will discuss with neurology and if determined this is symptomatic then will schedule for surgery as outpatient.
--- NOTE | 2021-01-03 13:31 | ECHOF ---
Referral Reason:TIA. Please perform bubble study rule out PFO MEASUREMENTS -------- HEIGHT: 160.0 cm WEIGHT: 74.8 kg BP: RVIDd: 2.8 cm (< 3.3) IVSd: 1.0 cm (0.6 - 1.1) LVIDd: 3.9 cm (3.9 - 5.3) LVPWd: 1.3 cm (0.6 - 1.1) IVSs: 1.1 cm LVIDs: 2.9 cm LVPWs: 1.8 cm LAESV Index (A-L): 41.46 ml/m Ao Diam: 2.5 cm (2.0 - 3.7) AV Cusp: 1.5 cm (1.5 - 2.6) LA Diam: 3.6 cm (2.7 - 3.8) MV EXCURSION: 13.189 mm (> 18.000) MV EF SLOPE: 75 mm/s (70 - 150) EPSS: 0.8 cm MV E Franky: 0.76 m/s MV DecT: 262 ms MV A Franky: 0.79 m/s MV E/A Ratio: 0.97 AV maxP.10 mmHg AV meanP.79 mmHg RAP: 5.00 mmHg RVSP: 36.87 mmHg FINDINGS -------- Sinus rhythm. This was a technically good study. LV size, wall thickness and systolic function are normal, with an EF greater than 55%. The left rita tricular size is normal. The right ventricle is normal in size. LA is severely dilated >40 ml/m2 The right atrial size is normal. Agitated Saline study is negative, no crossing at atrial level or right to left shunt noted. The aortic valve is very sclerotic. Also, there is an echodensity attached to the downstream side of the NC cusp. The DD includes fibroelastoma The mitral valve leaflets are mildly thickened. Mild mitral regurgitation is present. Mild tricuspid regurgitation present. There is mild pulmonary hypertension. The right ventricular systolic pressure, as measured by Doppler, is 36.87mmHg. There is no pulmonic regurgitation present. There is no pericardial effusion. CONCLUSIONS -------- 1. LV size, wall thickness and systolic function are normal, with an EF greater than 55%. 2. The left ventricular size is normal. 3. The right ventricle is normal in size. 4. LA is severely dilated >40 ml/m2 5. The right atrial size is normal. 6. Agitated Saline study is negative, no crossing at atrial level or right to left shunt noted. 7. The aortic valve is very sclerotic. Also, there is an echodensity attached to the downstream side of the NC cusp. The DD includes fibroelastoma 8. The mitral valve leaflets are mildly thickened. 9. Mild mitral regurgitation is present. 10. Mild tricuspid regurgitation present. 11. There is mild pulmonary hypertension. 12. The right ventricular systolic pressure, as measured by Doppler, is 36.87mmHg. 13. There is no pericardial effusion. CARCASS TRIMMER: Apolonia Betancourt RDCS
--- NOTE | 2021-01-03 16:06 | P.PN ---
Subjective Progress Note Date: 01/03/21 Patient was seen for a follow-up. Patient states she feels pressure in front of the eyes. Legs feel weak and slightly shaky. She is not sure if it is from laying in the bed. Patient's was also present. Objective - Vital Signs Vital signs: Vital Signs Temp 98.2 F 01/03/21 14:57 Pulse 68 01/03/21 14:57 Resp 16 01/03/21 14:57 BP 122/66 01/03/21 14:57 Pulse Ox 96 01/03/21 14:57 Intake & Output 01/02/21 01/03/21 01/03/21 18:59 06:59 18:59 Intake Total 1200 180 Balance 1200 180 Weight 74.843 kg Intake: Intake, IV Titration 1200 Amount Sodium Chloride 0.9% 1, 1200 000 ml @ 100 mls/hr IV . Q10H NO Rx#:[id number] Oral 180 Other: Voiding Method Toilet Toilet # Voids 3 1 - Exam Completely normal. - Labs CBC & Chem 7: 01/02/21 10:20 01/02/21 10:20 Labs: Abnormal Lab Results - Last 24 Hours (Table) 01/03/21 Range/Units 06:20 HDL Cholesterol 82.0 H (40.0-60.0) mg/dL Assessment and Plan Assessment: * Probable TIAs manifesting with vertigo and visual disturbance. * Left ICA stenosis 60-70% * Probable hypertension (not previously diagnosed, but blood pressures running moderately high) * Essential tremor * X tobacco use Plan: * MRI of the brain without contrast revealed numerous white matter high signal foci consistent with microvascular ischemia or demyelinating disease. On my review, there is a bright signal in the left ventral pontomedullary junction on diffusion-weighted images, but there was no associated change on the ADC ma pping, T2 weighted images and FLAIR, therefore probably artifactual. I have the MRI reviewed with Dr. Garrett, who believes, that the signal abnormality in the brainstem is probably real, indicating small area of ischemia. * 2-D echo with bubble study revealed normal left ventricular size, with EF g reater than 55%. Normal wall thickness. Left atrium is severely dilated. Agitated saline study is negative, no processing at the atrial level or [id number] shunt noted. The aortic valve is very sclerotic. There is an echodensity attached to the downstream side of the NC cusp. The DD includes fibroblastoma. Recommend cardiology consultation. * We will place patient on dual antiplatelet medication for 3 weeks and then maintain on aspirin 81 mg thereafter. * Fasting a.m. lipid panel showed cholesterol 165, LDL 63.2, HDL 82 and triglycerides 99. Lipids are well controlled. No indication for statins. * Hemoglobin A1c 5.1. * Telemetry monitoring showing sinus rhythm, sinus bradycardia. No other arrhythmia. May need event monitor. * Vascular surgical consultation for moderate left ICA stenosis. Patient seen by Dr. Wilcox. Carotid Doppler revealed tortuosity of the left ICA, may artif actually elevated the velocity. Consider evaluation with CTA or MRA for additional evaluation. Atheromatous plaquing is present. Time with Patient: Greater than 30
[2021-01-03] MEDS: CLOPIDOGREL 75 MG TAB PO SCH (17:39)
[2021-01-04] MEDS: SODIUM CHLORIDE 0.9% 1,000 ML IV SCH (07:42)
[2021-01-04] MEDS: CHOLECALCIFEROL 25 MCG (1000 IU) TABLET PO SCH (08:27)
[2021-01-04] MEDS: ZINC SULFATE 220 MG CAP PO SCH (08:27)
[2021-01-04] MEDS: CYANOCOBALAMIN 500 MCG TAB PO SCH (08:27)
[2021-01-04] MEDS: CALCIUM CARBONATE 500 MG CHEWABLE PO SCH (08:27)
[2021-01-04] MEDS: MULTIVITAMINS, THERA 1 EACH TAB PO SCH (08:27)
[2021-01-04] MEDS: FLUTICASONE 50MCG/SPRAY NASAL 16GM EA NOSTRIL SCH (08:28)
[2021-01-04] MEDS: PARoxetine 10 MG TAB PO SCH (08:28)
[2021-01-04] MEDS: TOPIRAMATE 25 MG TAB PO SCH (08:28)
[2021-01-04] MEDS: PRIMIDONE 50 MG TAB PO SCH (08:28)
[2021-01-04] MEDS: FERROUS SULFATE 325 MG TAB PO SCH (08:29)
[2021-01-04] MEDS: CLOPIDOGREL 75 MG TAB PO SCH (08:30)
--- NOTE | 2021-01-04 08:46 | P.PN ---
Subjective Progress Note Date: 01/03/21 Patient is a 75-year-old female with a known history of bilateral upper extremities tremor, hyperlipidemia, GERD, obstructive sleep apnea not on CPAP, depression presents to ER with complaints of vertigo started soon after she stepped out of her bed. Patient states that she went to bed around 10:30 PM the night before and woke her up around 9 AM when she suddenly started having dizzy and room started spinning. She can able to walk straight. Patient came to ER due to the symptoms not getting better. Otherwise denies any focal weakness. No complaints of slurred speech or numbness or tingling sensation in the extremities or facial muscle weakness or double vision. Denied any tinnitus. No complaints of headache. No fever no chills. Denied any recent illnesses. Chest x-ray on admission showed no evidence of acute pulmonary disease. Pleural-based mass versus eventration seen in the lateral projection. CT head and CT angiogram done in the ER showed age-related atrophic and chronic small vessel ischemic change without acute intracranial process. CT angiogram showed estimated diameter reduction of proximal left ICA 60 to 70%. No hemodynamically significant stenosis right ICA at this time. No significant abnormality noted. EKG showed sinus bradycardia with heart rate 58 Laboratory data showed sodium 138 potassium 4.2 BUN 15 and creatinine 0.6 AST 37 ALT 24 alk phos 154 total protein 6.2 On admission blood pressure 155/80 pulse of 56 respiration 18 and temperature 97.9 01/03/2021 Patient is seen in follow-up this morning stating her dizziness has resolved. Patient does have some weakness of the lower extremities and currently undergoing 2-D echo at the bedside. Family members are present. Neurology also following closely as patient recently underwent MRI of the brain showing numerous white matter high signal foci consistent with microvascular ischemia or demyelinating disease overall not a significant progression of disease compared to old exam along with a focus of signal change in the left anterior pontomedullary region that may indicate an acute ischemic change. She was placed on aspirin. Neurology adding Plavix. Cardiology being consulted Lipid panel within normal limits. Diet controlled. Review of systems: Constitutional: No reports of fatigue, fever, or chills Cardiovascular: No reports of chest pain or palpitations Respiratory: No reports of shortness of breath or cough GI: No reports of nausea, vomiting, or diarrhea : No reports of dysuria or retention Neurovascular: Reports generalized weakness of the lower extremities All medications have been reviewed Objective - Vital Signs Vital signs: Vital Signs Temp 97.9 F 01/03/21 07:00 Pulse 58 L 01/03/21 07:00 Resp 16 01/03/21 07:00 BP 125/64 01/03/21 07:00 Pulse Ox 96 01/03/21 07:00 Intake & Output 01/02/21 01/03/21 01/03/21 18:59 06:59 18:59 Intake Total 1200 Balance 1200 Weight 74.843 kg Intake: Intake, IV Titration 1200 Amount Sodium Chloride 0.9% 1, 1200 000 ml @ 100 mls/hr IV . Q10H NO Rx#:[id number] Other: Voiding Method Toilet Toilet # Voids 3 1 - Exam Gen: This is a 75-year-old female awake, alert and oriented 3, well-developed, well-nourished. HEENT: Head is atraumatic, normocephalic. Pupils equal, round. Sclerae is anicteric. NECK: Supple. No JVD. No lymphadenopathy. No thyromegaly. LUNGS: Clear to auscultation. No wheezes or rhonchi. No intercostal retraction s. HEART: Regular rate and rhythm. No murmur. ABDOMEN: Soft. Bowel sounds are present. No masses. No tenderness. EXTREMITIES: No pedal edema. No calf tenderness. NEUROLOGICAL: Patient is awake, alert and oriented x3. No focal deficits noted. - Labs CBC & Chem 7: 01/02/21 10:20 01/02/21 10:20 Labs: Abnormal Lab Results - Last 24 Hours (Table) 01/02/21 01/02/21 01/03/21 Range/Units 10:20 10:20 06:20 MCV 101.5 H (80.0-100.0) fL Chloride 108 H (98-107) mmol/L Glucose 102 H (74-99) mg/dL AST 37 H (14-36) U/L Alkaline Phosphatase 154 H (38-126) U/L Total Protein 6.2 L (6.3-8.2) g/dL HDL Cholesterol 82.0 H (40.0-60.0) mg/dL Assessment and Plan Assessment: Persistent vertigo r/o acute CVA versus peripheral vestibular dysfunction Left ICA stenosis 60 to 70%. History of tremors of bilateral upper extremities. Hyperlipidemia GERD Osteoarthritis Obstructive sleep apnea not on CPAP Depression DVT prophylaxis with heparin subcu Plan: Patient is continued on aspirin and being followed closely by neurology. Patient underwent 2-D echo with bubble study showing LV systolic function normal with an EF greater than 55% with the agitated saline study being negative and no crusting noted at the atrial level or right to left shunt noted, the aortic valve found to be very sclerotic also an echo density attached to the downstream side of the NC cost with a possible differential diagnosis including fibroblastoma, mitral valve leaflets are mildly thickened with mild mitral and tricuspid regurgitation present, also mild pulmonary hypertension present. Cardiology is being consulted for possibility of CESAR and patient is being started on aspirin along with Plavix and will continue the stroke workup. MRI of the brain shows numerous white matter high signal foci consistent with microvascular ischemia or demyelinating disease overall not a significant progression of disease compared to old exam along with a focus of signal change in the left anterior pontomedullary region that can be an acute ischemic change. Again neurology following closely and cardiology has been consulted for possibility of CESAR. Will continue to monitor closely with further recommendations to follow based on the clinical course the patient. Family at the bedside. Currently patient is not experiencing any further dizziness or left or right-sided deficits noted on exam. Prognosis guarded.
[2021-01-04] MEDS ORDERED: HEPARIN SODIUM,PORCINE/PF 5,000 UNIT/0.5 ML SYRINGE SQ SCH (09:00)
[2021-01-04] MEDS ORDERED: ASPIRIN 81 MG PO SCH (09:00)
--- NOTE | 2021-01-04 09:12 | P.PN ---
Subjective Progress Note Date: 01/04/21 Principal diagnosis: carotid stenosis Should seen and examined sitting up in bed. She denies any focal deficits. She states usually her left eye will feel like there something running thigh. Otherwise her vision is clear. She denies any weakness, dizziness, speech difficulty, or difficulty swallowing. She is ambulating without any difficulty. Neurology is on consult and reviewed MRI with radiologist, believe that there is an area of ischemia. Likely TIA. Objective - Vital Signs Vital signs: Vital Signs Temp 98.0 F 01/04/21 07:00 Pulse 63 01/04/21 07:00 Resp 19 01/04/21 07:00 BP 172/77 01/04/21 07:00 Pulse Ox 97 01/04/21 07:00 Intake & Output 01/03/21 01/04/21 01/04/21 18:59 06:59 18:59 Intake Total 180 Balance 180 Intake: Oral 180 Other: Voiding Method Toilet Toilet # Voids 1 1 - Exam General appearance: The patient is alert, oriented, appears in no acute distress. HET: Head is normocephalic and atraumatic. Pupils are equal and reactive. Neck: Supple without lymphadenopathy. Trachea midline. Heart: S1 S2. Regular rate and rhythm. Lungs: Clear to auscultation. Abdomen: Soft, nontender, nondistended. Extremities: Normal skin color and turgor. No cyanosis, rash, ulceration, clubbing, or edema. Radial and pedal pulses are 2/4 bilaterally. Neurological: No focal deficits. Strength and sensation are grossly intact. - Labs CBC & Chem 7: 01/02/21 10:20 01/02/21 10:20 Labs: Abnormal Lab Results - Last 24 Hours (Table) 01/03/21 Range/Units 06:20 HDL Cholesterol 82.0 H (40.0-60.0) mg/dL Assessment and Plan Assessment: 1. Asymptomatic, Left ICA stenosis, reported 60-70% on CT angiogram 2. Vertigo 3. Essential tremor Plan: 1. CT angiogram head and neck reviewed 2. Carotid ultrasound ordered/reviewed 3. Agree with dual antiplatelet therapy 4. Continue current medical management 5. Patient scheduled for CESAR 6. Patient to follow-up with Dr. Laura in 1 week to discuss possible outpatient intervention Thank you for this consultation, patient is cleared for discharge from a vascular surgical standpoint. The impression and plan of care has been dictated as directed. Dr. Wilcox I performed a history and examination of this patient, discussed the same with the dictator. I agree with the dictator's note ,documented as a scribe. Any additional findings or plans will be noted.
--- NOTE | 2021-01-04 09:37 | P.CRDCN ---
History of Present Illness Consult date: 01/04/21 History of present illness: HISTORY OF PRESENT ILLNESS: This is a 75-year-old female with a past medical history significant for essential tremors, gastric bypass surgery, GERD, and osteoarthritis. Patient does not follow with a heating and ventilating tender. We have been asked to see the patient in consultation for abnormal echo. Patient examined at the bedside. Patient states she came to the hospital secondary to "my whole head was spinning". Patient de nied having any vision changes or difficulties with her speech. She states that she felt very wobbly and she was walking but did not know as any weakness on one side of her body. She states this lasted all day on Saturday and resolved sometime yesterday. She denies chest pain or pressure. She denies shortness of breath. She states she feels back to her baseline at this time. Patient had an echocardiogram completed revealing ejection fraction 55, very sclerotic aortic valve, and echodensity attached to the downstream side of the NC cusp. Differential diagnosis includes fibroelastoma, mild mitral regurgitation, mild tricuspid regurgitation, and mild pulmonary hypertension CTA head and neck estimated diameter reduction of proximal left internal carotid artery 60-70%. No hemodynamically significant stenosis of the right internal carotid artery at this time. MRI of the brain: Numerous white matter high signal foci consistent with microvascular ischemia or demyelinating disease. REVIEW OF SYSTEMS: At the time of my exam: CONSTITUTIONAL: Denies fever or chills. HEENT: Denies blurred vision, vision changes, or eye pain. Denies hemoptysis CARDIOVASCULAR: Denies chest pain. Denies orthopnea. Denies PND. Denies palpitations RESPIRATORY: Denies shortness of breath. GASTROINTESTINAL: Denies abdominal pain. Denies nausea or vomiting. HEMATOLOGIC: Denies bleeding disorders. GENITOURINARY: Denies any blood in urine. SKIN: Denies pruitis. Denies rash. PHYSICAL EXAM: VITAL SIGNS: Reviewed. GENERAL: Well-developed in no acute distress. HEENT: Head is normocephalic. Pupils are equal, round. Sclerae anicteric. Mucous membranes of the mouth are moist. Neck supple. No JVD or thyromegaly LUNGS: Respirations even and unlabored. Lungs essentially clear to auscultation bilaterally. HEART: Regular rate and rhythm. S1 and S2 heard. ABDOMEN: Soft. Nondistended. Nontender. EXTREMITIES: Normal range of motion. No clubbing or cyanosis. Peripheral pulses intact. No lower extremity edema NEUROLOGIC: Awake and alert. Oriented x 3. ASSESSMENT: Vertigo TIA Left internal carotid artery stenosis 60-70% Echodensity attached to downstream side of NC cusp of aortic valve, rule out fibroelastoma Essential tremor Previous nicotine dependence PLAN: Continue management of TIA per neurology Patient to undergo CESAR today to further evaluate echocardiogram findings Further recommendations pending patient course Nurse practitioner note has been reviewed by physician. Signing provider agrees with the documented findings, assessment, and plan of care. Past Medical History Past Medical History: GERD/Reflux, Hyperlipidemia, Neurologic Disorder, Osteoarthritis (OA), Sleep Apnea/CPAP/BIPAP Additional Past Medical History / Comment(s): GOUT, ESSENTIAL TREMORS OF UPPER EXTREMITIES, "TROUBLE SWALLOWING", cataracts History of Any Multi-Drug Resistant Organisms: None Reported Past Surgical History: Bariatric Surgery, Cholecystectomy Additional Past Surgical History / Comment(s): Varicose Veins, TIFF (Transoral Incisionless Fundoplication), gastric bypass 04/19/14, bilateral cataracts Past Anesthesia/Blood Transfusion Reactions: No Reported Reaction Past Psychological History: Depression Smoking Status: Never smoker Past Alcohol Use History: Rare Past Drug Use History: None Reported Medications and Allergies Home Medications Medication Instructions Recorded Confirmed Type PARoxetine HCL [Paxil Cr] 37.5 mg PO DAILY 12/02/13 01/02/21 History Primidone [Mysoline] 50 mg PO BID 12/02/13 01/02/21 History Topiramate 50 mg PO BID 12/02/13 01/02/21 History Multivitamins, Thera [Multivitamin] 1 tab PO DAILY 07/14/14 01/02/21 History Albuterol Sulfate [Ventolin HFA] 1 - 2 puff INHALATION RT-Q4H PRN 01/02/21 01/02/21 History Calcium Carbonate [Calcium] 600 mg PO DAILY 01/02/21 01/02/21 History Cholecalciferol [Vitamin D3 (25 25 mcg PO DAILY 01/02/21 01/02/21 History Mcg = 1000 Iu)] Cyanocobalamin (Vitamin B-12) 1,000 mcg PO DAILY 01/02/21 01/02/21 History [Vitamin B-12] Diclofenac Sodium Gel [Voltaren 2 gm TOPICAL DAILY PRN 01/02/21 01/02/21 History Gel] Ferrous Sulfate [Feosol] 325 mg PO DAILY 01/02/21 01/02/21 History Fluticasone Nasal [place] [Flonase 1 spr EA NOSTRIL DAILY 01/02/21 01/02/21 Hist ory Nasal [place]] Zinc 50 mg PO DAILY 01/02/21 01/02/21 History Allergies Allergy/AdvReac Type Severity Reaction Status Date / Time No Known Allergies Allergy Verified 01/02/21 10:32 Physical Exam Vitals: Vital Signs Temp Pulse Resp BP Pulse Ox 01/04/21 08:12 98.0 F 63 19 172/77 97 01/04/21 07:00 98.0 F 63 19 172/77 97 01/04/21 02:05 97.5 F L 58 L 17 112/69 96 01/04/21 02:00 58 L 01/03/21 20:00 98.1 F 64 16 133/68 97 01/03/21 19:21 68 16 01/03/21 14:57 98.2 F 68 16 122/66 96 01/03/21 14:00 16 Intake and Output 01/03/21 01/04/21 01/04/21 22:59 06:59 14:59 Other: Voiding Method Toilet Toilet # Voids 1 1 Results 01/02/21 10:20 01/02/21 10:20 Lipids 01/03/21 Range/Units 06:20 Triglycerides 99.0 (0.0-149.0) mg/dL Cholesterol 165 (0-200) mg/dL HDL Cholesterol 82.0 H (40.0-60.0) mg/dL Cholesterol/HDL Ratio 2.01 Current Medications Generic Name Dose Route Start Last Admin Trade Name Freq PRN Reason Stop Dose Admin Albuterol Sulfate 2 puff 01/02/21 14:17 Albuterol Hfa Inhaler INHALATION RT-Q4H PRN Shortness Of Breath Aspirin 81 mg 01/04/21 09:00 01/04/21 08:27 Aspirin 81 Mg PO 81 mg DAILY NO Administration Calcium Carbonate/Glycine 500 mg 01/03/21 09:00 01/04/21 08:27 Calcium Carbonate 500 Mg Chewable PO 500 mg DAILY NO Administration Cholecalciferol 25 mcg 01/03/21 09:00 01/04/21 08:27 Cholecalciferol 25 Mcg (1000 Iu) Tablet PO 25 mcg DAILY NO Administration Clopidogrel Bisulfate 75 mg 01/03/21 16:45 01/04/21 08:30 Clopidogrel 75 Mg Tab PO 75 mg DAILY NO Administration Cyanocobalamin 1,000 mcg 01/03/21 09:00 01/04/21 08:27 Cyanocobalamin 500 Mcg Tab PO 1,000 mcg DAILY NO Administration Ferrous Sulfate 325 mg 01/03/21 09:00 01/04/21 08:29 Ferrous Sulfate 325 Mg Tab PO 325 mg DAILY NO Administration Fluticasone Propionate 1 spray 01/03/21 09:00 01/04/21 08:28 Fluticasone 50mcg/[place] Nasal 16gm EA NOSTRIL 1 spray DAILY NO Administration Heparin Sodium (Porcine) 5,000 unit 01/04/21 09:00 01/04/21 08:29 Heparin Sodium,Porcine/Pf 5,000 Unit/0.5 Ml Syringe SQ 5,000 unit Q12HR NO Administration Multivitamins 1 each 01/03/21 09:00 01/04/21 08:27 Multivitamins, Thera 1 Each Tab PO 1 each DAILY NO Administration Paroxetine HCl 30 mg 01/03/21 09:00 01/04/21 08:28 Paroxetine 10 Mg Tab PO 30 mg DAILY NO Administration Primidone 50 mg 01/02/21 21:00 01/04/21 08:28 Primidone 50 Mg Tab PO 50 mg BID NO Administration Topiramate 50 mg 01/02/21 21:00 01/04/21 08:28 Topiramate 25 Mg Tab PO 50 mg BID NO Administration Zinc Sulfate 220 mg 01/03/21 09:00 01/04/21 08:27 Zinc Sulfate 220 Mg Cap PO 220 mg DAILY NO Administration Intake and Output 01/03/21 01/04/21 01/04/21 22:59 06:59 14:59 Other: Voiding Method Toilet Toilet # Voids 1 1 01/02/21 10:20 01/02/21 10:20
[2021-01-04] MEDS ORDERED: fentaNYL (PF) 50 MCG/ML 2 ML AMP ONE (10:35)
[2021-01-04] MEDS ORDERED: IV FLUID CONTINUATION 1,000 ML IV ONE (10:37)
[2021-01-04] MEDS ORDERED: SODIUM CHLORIDE 0.9% 500 ML 500 ML IV ONE (10:45)
[2021-01-04] MEDS ORDERED: fentaNYL (PF) 50 MCG/ML 2 ML AMP IV ONE (10:52)
[2021-01-04] MEDS ORDERED: MIDAZOLAM 2 MG/2 ML VIAL IV ONE ×2 (10:52→10:53)
[2021-01-04] MEDS ORDERED: BENZOCAINE SPRAY 1 CAN MUCOUS MEM ONE (10:52)
--- NOTE | 2021-01-04 12:21 | ECHOT ---
TRANSESOPHAGEAL ECHOCARDIOGRAM DATE OF SERVICE: January 04, 2021 PROCEDURE PERFORMED: Transesophageal echocardiogram. INDICATION: Stroke. COMPLICATION: None. LEVEL OF SEDATION: Moderate with sedation length of 10 minutes. PROCEDURE DESCRIPTION: After obtaining an informed consent, explaining the procedure, benefits, risks, complications and alternatives, the patient was brought to the transesophageal echocardiogram suite. A pulse oximetry and heart rate monitors were attached to the patient prior to the procedure. The patient's throat was sprayed using lidocaine locally. Following that, the patient was turned into left lateral position. A bite guard was placed and the patient was then sedated with the above doses of Versed and fentanyl in divided doses. Following that, the transesophageal echocardiogram probe was advanced through the bite guard into the mid esophagus where 2-D echocardiogram images as well as color Doppler images of various cardiac structures were obtained. We evaluated the interatrial septum using 2-D echocardiogram, color Doppler, and contrast study. The procedure was completed. There were no complications. The procedure CESAR was performed using 2D echocardiogram images as well as color Doppler and continuous Doppler and pulse wave Doppler. FINDINGS: The left ventricular dimension and systolic function appeared to be within normal limits. The ejection fraction appeared to be in the range of 50% to 55%. Right ventricle appeared to be of normal size and function. The left atrium and right atrium are moderately dilated. The left atrial appendage appeared to be free from any thrombus. The interatrial septum appeared to be intact. 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 The mitral valve appeared to be thickened with moderate MR. There was moderate tricuspid regurgitation seen. No evidence of pericardial effusion. CONCLUSION: 1. Normal left ventricular dimension and systolic function. 2. Normal right ventricular dimension and systolic function. 3. Moderate biatrial enlargement. 4. Intact interatrial septum. 5. Normal left atrial appendage. 6. 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 The echodensity was measured 0.4 x 0.6 cm. Other differential includes atherosclerotic changes in the aortic valve itself. 7. The mitral valve appeared to be mildly thickened with moderate mitral regurgitation. 8. Moderate tricuspid regurgitation. 9. No evidence of pericardial effusion. MMODL / IJN: [id number] /
--- NOTE | 2021-01-04 12:39 | P.PN ---
Subjective Progress Note Date: 01/04/21 Patient was seen for a follow-up. Patient states she continues to feel pressure in front of the eyes with head fogginess. The vertigo that she had initially on admission lasted all day, on the day of admission. Now it is resolved. She still feels some weakness in the legs. She has not walked much today. Patient's was also present. Overall she feels 70% better. Patient had just returned back from CESAR. Objective - Vital Signs Vital signs: Vital Signs Temp 98.1 F 01/04/21 11:17 Pulse 62 01/04/21 10:57 Resp 16 01/04/21 11:17 BP 119/71 01/04/21 11:17 Pulse Ox 96 01/04/21 11:17 Intake & Output 01/03/21 01/04/21 01/04/21 18:59 06:59 18:59 Intake Total 180 50 Balance 180 50 Intake: IV 50 Oral 180 Other: Voiding Method Toilet Toilet Toilet # Voids 1 1 - Exam Patient's mental status, speech and language functions are normal. Cranial nerves pupils are round and reacting, visual hernandez are full, extraocular muscles are intact. Face is symmetric and tongue protrudes to the midline. Palatal elevation, hearing and shoulder shrug normal. Facial sensation normal on muscle strength testing there is no drift and the strength is normal in arms and legs. Sensations are equal. Finger to nose testing again shows tremu lousness, which is at baseline, nothing worse. - Labs CBC & Chem 7: 01/02/21 10:20 01/02/21 10:20 Assessment and Plan Assessment: * Probable TIAs manifesting with vertigo and visual disturbance. 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 * Essential tremor * X tobacco use Plan: * CESAR was performed today. It revealed normal for left ventricular dimension and systolic function. Moderate biatrial enlargement. Intact interatrial septum. Normal left atrial appendage. 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 The echodensity was measured 0.4 x 0.6 cm. The differential includes atherosclerotic changes in the aortic valve itself. The mitral valve appeared to be mildly thickened with moderate MR. Moderate TR. We will await final cardiology recommendations regarding fibroblastoma. * MRI of the brain without contrast revealed numerous white matter high signal foci consistent with microvascular ischemia or demyelinating disease. On my review, there is a bright signal in the left ventral pontomedullary junction on diffusion-weighted images, but there was no associated change on the ADC mapping, T2 weighted images and FLAIR, therefore probably artifactual. I have the MRI reviewed with Dr. Garrett, who believes, that the signal abnormality in the brainstem is probably real, indicating small area of ischemia. * 2-D echo with bubble study revealed normal left ventricular size, with EF greater than 55%. Normal wall thickness. Left atrium is severely dilated. Agitated saline study is negative, no processing at the atrial level or [id number] shunt noted. The aortic valve is very sclerotic. There is an echodensity attached to the downstream side of the NC cusp. The DD includes fibroblastoma. * Continue dual antiplatelet medication for 3 weeks and then maintain on aspirin 81 mg thereafter. * Fasting a.m. lipid panel showed cholesterol 165, LDL 63.2, HDL 82 and triglycerides 99. Lipids are well controlled. No indication for statins. * Hemoglobin A1c 5.1. * Telemetry monitoring showing sinus rhythm, sinus bradycardia. No other arrhythmia. May need event monitor. * Vascular surgical consultation input appreciated. Patient to follow up with us neurosurgery as outpatient.
[2021-01-04 15:20] VITALS: BP 126/76; PULSE 67; RESP 18; TEMP 97.2
--- NOTE | 2021-01-06 15:39 | P.DS ---
Providers Date of admission: 01/02/21 14:19 Expected date of discharge: 01/04/21 Attending physician: Keyur Paz MD Consults: 01/02/21 14:16 Consult Physician Routine Consulting Provider: Yunior Galaviz Consult Reason/Comments: dizziness, vertigo Do you want consulting provider notified?: Yes 01/03/21 09:46 Consult Physician Urgent Consulting Provider: Whit Wilcox Consult Reason/Comments: left moderate stenosis/CVA Do you want consulting provider notified?: Yes 01/03/21 15:53 Consult Physician Routine Consulting Provider: Gunnar Rosales Consult Reason/Comments: Aortic sclerosis, ?Fibroelastoma Do you want consulting provider notified?: Yes Primary care physician: Teddy Moctezuma Hospital Course: Final diagnosis Persistent vertigo r/o acute CVA versus peripheral vestibular dysfunction Probable TIA Left ICA stenosis 60 to 70%. History of tremors of bilateral upper extremities. Hyperlipidemia GERD Osteoarthritis Obstructive sleep apnea not on CPAP Depression DVT prophylaxis with heparin subcu Full code Discharge disposition Patient is being discharged in a stable condition with guarded prognosis to home. Patient will follow-up with Dr. Teddy Moctezuma in the outpatient setting upon discharge. Patient is to also follow-up with vascular surgery and neurology outpatient. Patient will continue on aspirin and Plavix for 3 weeks and then continue with just aspirin after neurology follow-up. Total time taken is greater than 35 minutes. Hospital course Patient is a 75-year-old female with a known history of bilateral upper extremities tremor, hyperlipidemia, GERD, obstructive sleep apnea not on CPAP, depression presents to ER with complaints of vertigo started soon after she stepped out of her bed. Patient states that she went to bed around 10:30 PM the night before and woke her up around 9 AM when she suddenly started having dizzy and room started spinning. She can able to walk straight. Patient came to ER due to the symptoms not getting better. Otherwise denies any focal weakness. No complaints of slurred speech or numbness or tingling sensation in the extremities or facial muscle weakness or double vision. Denied any tinnitus. No complaints of headache. No fever no chills. Denied any recent illnesses. Chest x-ray on admission showed no evidence of acute pulmonary disease. Pleural-based mass versus eventration seen in the lateral projection. CT head and CT angiogram done in the ER showed age-related atrophic and chronic small vessel ischemic change without acute intracranial process. CT angiogram showed estimated diameter reduction of proximal left ICA 60 to 70%. No hemodynamically significant stenosis right ICA at this time. No significant abnormality noted. EKG showed sinus bradycardia with heart rate 58 Laboratory data showed sodium 138 potassium 4.2 BUN 15 and creatinine 0.6 AST 37 ALT 24 alk phos 154 total protein 6.2 On admission blood pressure 155/80 pulse of 56 respiration 18 and temperature 97.9 01/03/2021 Patient is seen in follow-up this morning stating her dizziness has resolved. Patient does have some weakness of the lower extremities and currently undergoing 2-D echo at the bedside. Family members are present. Neurology also following closely as patient recently underwent MRI of the brain showing numerous white matter high signal foci consistent with microvascular ischemia or demyelinating disease overall not a significant progression of disease compared to old exam along with a focus of signal change in the left anterior pontomedullary region that may indicate an acute ischemic change. She was placed on aspirin. Neurology adding Plavix. Cardiology being consulted Lipid panel within normal limits. Diet controlled. 01/04/2021 Patient is seen in follow-up underwent CESAR which was discussed with family, patient, and cardiology in detail and patient will follow-up outpatient along with vascular surgery and neurology and will continue on aspirin and Plavix for the next 3 weeks with dual antiplatelet therapy and then possibly discontinue Plavix and continue with aspirin although will need discuss with neurology and vascular surgery. Currently no reports of chest pain, shortness of breath, or palpitations. Patient is afebrile. No reports of nausea or vomiting and patient is tolerating diet. Patient will be discharged home today. On exam vital signs are stable. Cardio S1, S2 are muffled. Respiratory system shows diminished breath sounds at the bases with no wheezing or rhonchi noted. Abdomen is soft and nontender. Nervous system shows no focal deficits. Please refer to medication reconciliation sheet for a list of medications. Patient Condition at Discharge: Fair Plan - Discharge Summary Discharge Rx Participant: No New Discharge Prescriptions: New Aspirin 81 mg PO DAILY #30 chew Clopidogrel [Plavix] 75 mg PO DAILY #30 tab Continue Topiramate 50 mg PO BID Primidone [Mysoline] 50 mg PO BID PARoxetine HCL [Paxil Cr] 37.5 mg PO DAILY Multivitamins, Thera [Multivitamin (formulary)] 1 tab PO DAILY Fluticasone Nasal [place] [Flonase Nasal [place]] 1 spr EA NOSTRIL DAILY Cholecalciferol [Vitamin D3 (25 Mcg = 1000 Iu)] 25 mcg PO DAILY Calcium Carbonate [Calcium] 600 mg PO DAILY Albuterol Sulfate [Ventolin HFA] 1 - 2 puff INHALATION RT-Q4H PRN PRN Reason: Shortness Of Breath Zinc 50 mg PO DAILY Ferrous Sulfate [Iron (65 MG Elemental)] 325 mg PO DAILY Cyanocobalamin (Vitamin B-12) [Vitamin B-12] 1,000 mcg PO DAILY Diclofenac Sodium Gel [Voltaren Gel] 2 gm TOPICAL DAILY PRN PRN Reason: Pain Discharge Medication List PARoxetine HCL [Paxil Cr] 37.5 mg PO DAILY 12/02/13 [History] Primidone [Mysoline] 50 mg PO BID 12/02/13 [History] Topiramate 50 mg PO BID 12/02/13 [History] Multivitamins, Thera [Multivitamin (formulary)] 1 tab PO DAILY 07/14/14 [History] Albuterol Sulfate [Ventolin HFA] 1 - 2 puff INHALATION RT-Q4H PRN 01/02/21 [History] Calcium Carbonate [Calcium] 600 mg PO DAILY 01/02/21 [History] Cholecalciferol [Vitamin D3 (25 Mcg = 1000 Iu)] 25 mcg PO DAILY 01/02/21 [History] Cyanocobalamin (Vitamin B-12) [Vitamin B-12] 1,000 mcg PO DAILY 01/02/21 [History] Diclofenac Sodium Gel [Voltaren Gel] 2 gm TOPICAL DAILY PRN 01/02/21 [History] Ferrous Sulfate [Iron (65 MG Elemental)] 325 mg PO DAILY 01/02/21 [History] Fluticasone Nasal [place] [Flonase Nasal [place]] 1 spr EA NOSTRIL DAILY 01/02/21 [History] Zinc 50 mg PO DAILY 01/02/21 [History] Aspirin 81 mg PO DAILY #30 chew 01/04/21 [Rx] Clopidogrel [Plavix] 75 mg PO DAILY #30 tab 01/04/21 [Rx] Follow up Appointment(s)/Referral(s): Per Laura DO [STAFF PHYSICIAN] - 01/17/21 2:45 pm Teddy Moctezuma MD [Primary Care Provider] - 01/06/21 9:15 am () Filiberto Melendrez MD [Medical Doctor] - 1 Week (YOU WILL NEED A REFERRAL FROM YOUR PRIMARY CARE PHYSICIAN TO SCHEDULE AN APPOINTMENT WITH DR. MELENDREZ. ) Patient Instructions/Handouts: Transient Ischemic Attack (DC), Transesophageal Echocardiogram (DC), Vertigo (DC) Activity/Diet/Wound Care/Special Instructions: Activity Limited until follow-up Continue current diet Continue medications as prescribed Continue dual antiplatelet medications of aspirin and Plavix for 3 weeks and then maintain just aspirin 81 mg daily after follow-up with neurology Follow-up cardiology outpatient Follow-up neurology outpatient in one week Follow-up with vascular surgery as discussed and scheduled follow up with primary care provider upon discharge Discharge Disposition: HOME SELF-CARE
== END 2021-01-04 16:55 | disposition home or self-care (01) ==
LOC: EC 09:48 → SUPCPDRO 09:48 → 6NMEDSUR 14:19
PROVIDERS: ADMIT Internal Medicine; ATTEND Internal Medicine
DX: R42 Dizziness and giddiness (principal); I65.22 Occlusion and stenosis of left carotid artery; R03.0 Elevated blood-pressure reading, without diagnosis of hypertension; I67.82 Cerebral ischemia; I08.3 Combined rheumatic disorders of mitral, aortic and tricuspid valves; R93.1 Abnormal findings on diagnostic imaging of heart and coronary circulation; I27.20 Pulmonary hypertension, unspecified; G25.0 Essential tremor; R00.1 Bradycardia, unspecified; G47.33 Obstructive sleep apnea (adult) (pediatric); K21.9 Gastro-esophageal reflux disease without esophagitis; M19.90 Unspecified osteoarthritis, unspecified site; E78.5 Hyperlipidemia, unspecified; M10.9 Gout, unspecified; F32.9 Major depressive disorder, single episode, unspecified; R13.10 Dysphagia, unspecified; R53.1 Weakness; R26.2 Difficulty in walking, not elsewhere classified; Z79.899 Other long term (current) drug therapy; Z90.49 Acquired absence of other specified parts of digestive tract; Z98.84 Bariatric surgery status; Z98.42 Cataract extraction status, left eye; Z98.41 Cataract extraction status, right eye; Z87.891 Personal history of nicotine dependence; Z87.01 Personal history of pneumonia (recurrent); Z82.3 Family history of stroke
CPT/HCPCS: 99285; 36415; 93005; 93312; 93306; 93325; 97162; 97166; 92523; 80061; 80053; 82550; 84484; 85025; 85610; 85730; 83036; 71046; 93880; 70496; 70450; 70498; 70551; G0378 ×3; J2250; J3010; Q9967; J1644

== ENCOUNTER → 2023-07-11 | Outpatient (CLI) | payer MEDICARE ==
[2023-07-11 15:20] LABS: HCT 40.2 % (37.2-46.3); HGB 12.6 g/dL (12.0-15.0); MCH 30.1 pg (27.0-32.0); MCHC 31.3 g/dL (32.0-37.0); MCV 95.9 FL (80.0-97.0); Mean Platelet Volume 10.1 FL (9.5-12.2); NRBC Per 100 WBC 0 X 10*3/uL (0.00-0.01); Platelet Count 341 X 10*3/uL (140-440); RBC 4.19 X 10*6/uL (4.10-5.20); RDW 13.9 % (11.5-14.5); WBC 7.31 X 10*3/uL (4.50-10.00)
[2023-07-11 15:30] LABS: Blood Urea Nitrogen 18.7 mg/dL (9.0-27.0); Carbon Dioxide 23.2 mmol/L (21.6-31.8); Chloride 108 mmol/L (96-109); Potassium 4.2 mmol/L (3.5-5.5); Sodium 142 mmol/L (135-145)
== END | disposition home or self-care (01) ==
LOC: LABPAT 09:37
PROVIDERS: ATTEND Internal Medicine Interventional Cardiology
DX: Z01.812 Encounter for preprocedural laboratory examination (principal); R06.02 Shortness of breath
CPT/HCPCS: 36415; 80051; 82565; 84520; 85027

== ENCOUNTER 2023-07-19 10:05 | Day surgery (SDC) | payer MEDICARE ==
[2023-07-16 09:36] VITALS: BMI 27.3
[~2023-07-19 10:05] MED LIST: ALPRAZolam 0.25 MG TAB PO PRN; ALPRAZolam 0.5 MG TAB PO PRN; ASPIRIN 325 MG TAB PO STA; NITROGLYCERIN SL TABS 0.4 MG TAB SUBLINGUAL PRN; SODIUM CHLORIDE 0.9% 1,000 ML in EMPTY BAG 1 BAG IV SCH
[2023-07-19] MEDS: SODIUM CHLORIDE 0.9% 1,000 ML IV ONE (10:38)
[2023-07-19 11:04] VITALS: RESP 16; TEMP 98.3
[2023-07-19] MEDS ORDERED: VERAPAMIL 2.5 MG/ML 2 ML AMP ONE (12:13)
[2023-07-19] MEDS ORDERED: HEPARIN SODIUM 1,000 UN/ML (10ML VL) ONE (12:21)
[2023-07-19] MEDS: LIDOCAINE 1% INJ 10MG/ML (20 ML MDV) SQ ONE (12:45)
[2023-07-19] MEDS: MIDAZOLAM 2 MG/2 ML VIAL IVP ONE (12:45)
[2023-07-19] MEDS: VERAPAMIL SYRINGE (5 MG/10 ML) INTRAARTER ONE (12:47)
[2023-07-19] MEDS: HEPARIN SODIUM 1,000 UN/ML (10ML VL) IV ONE (12:49)
[2023-07-19] MEDS: IOPAMIDOL-370 100ML BTL INJ ONE (12:51)
[2023-07-19] MEDS ORDERED: RX INFO: IV CONTRAST WAS GIVEN 1 EACH MISC MISCELLANE PRN (12:59)
[2023-07-19] MEDS ORDERED: SODIUM CHLORIDE 0.9% 1,000 ML IV SCH (13:00)
--- NOTE | 2023-07-19 13:03 | P.PCN ---
Date of Procedure: 07/19/23 Operative Findings: CARDIAC CATHETERIZATION PERFORMING PHYSICIAN: Gunnar Rosales MD, RPVI PROCEDURE PERFORMED: 1. Selective right and left coronary angiogram 2. Left heart catheterization 3. Ultrasound-guided access of the right radial artery INDICATION: Shortness of breath concerning for severe underlying coronary artery disease COMPLICATION: None APPROACH: Right radial artery LEVEL OF SEDATION: Moderate with a sedation length of 12 minutes PROCEDURE DESCRIPTION: After obtaining an informed consent, the patient was brought to cardiac slab worker. Local anesthesia was performed using lidocaine subcutaneously. The right radial artery was cannulated using Seldinger technique, the guidewire passed easily, following that we advanced a 5-Romanian sheath dilator assembly, the wire and dilator were removed and sheath was flushed. Following that, 2 mg of verapamil along with 5000 unit heparin were given. Selective right and left coronary angiogram using a 6-Romanian JR4 and JL 3.5 catheters. Following that we did left heart catheterization using 6-Romanian pigtail catheter. The procedure was completed there was no complication. SELECTIVE CORONARY ANGIOGRAM: The right coronary artery: Moderate caliber vessel nondominant vessel was mild disease only Left main: Angiographically normal The left circumflex: Large caliber vessel and dominant vessel and appeared to be angiographically nor mal. Gives rises into the first and second obtuse marginal branches and distally bifurcates into PDA and PLV branches both appeared to be angiographically normal The left anterior descending artery: Moderate caliber vessel was mild disease in the midportion. The LAD gives rise into a large diagonal branch which seems to be normal. HEMODYNAMICS: The LVEDP was 5 mmHg was no significant gradient across aortic valve CONCLUSION: 1. Might CAD 2. Normal left-sided filling pressure POSTPROCEDURE MANAGEMENT: Medical treatment
[2023-07-19 15:07] VITALS: PULSE 62
[2023-07-19] MEDS ORDERED: DILTIAZEM ORAL 30 MG TAB PO STA (15:15)
[2023-07-19 17:28] VITALS: BP 155/67
== END 2023-07-19 16:40 | disposition home or self-care (01) ==
LOC: CATHCVL 10:05
PROVIDERS: ATTEND Internal Medicine Interventional Cardiology
DX: I25.10 Atherosclerotic heart disease of native coronary artery without angina pectoris (principal); I10 Essential (primary) hypertension; E78.5 Hyperlipidemia, unspecified; F17.210 Nicotine dependence, cigarettes, uncomplicated; Z82.49 Family history of ischemic heart disease and other diseases of the circulatory system; Z79.01 Long term (current) use of anticoagulants; Z79.899 Other long term (current) drug therapy
CPT/HCPCS: 93458; J2250; J2001; J1644; Q9967